=== PATIENT | female | born 1965 | race Asian ===

== ENCOUNTER 2016-10-02 14:55 | Emergency (ER) | payer BC ==
[2016-10-02] MEDS ORDERED: ACETAMINOPHEN TAB 500 MG TAB PO STA (16:19)
--- NOTE | 2016-10-02 16:24 | ED ---
Fever HPI - General Chief Complaint: Fever Stated Complaint: fever/weakness/trembling Time Seen by Provider: 10/02/16 16:04 Source: family, RN notes reviewed Mode of arrival: wheelchair Limitations: no limitations - History of Present Illness Initial Comments: 51-year-old female presents emergency Department chief complaint of fever. Patient developed a fever that started today. Patient has no specific complaints associated with. Patient denies any recent acetaminophen or ibuprofen. Patient states she took Tylenol at 6 AM this morning. Patient states that she is ALLERGIC to aspirin so she does not take ibuprofen. Patient states that she's had a slight cough denies sore throat, ear pain, headache or any neck stiffness. Patient states that she does have some body aches. Patient denies any dysuria, hematuria, nausea or vomiting. - Related Data Home Medications Medication Instructions Recorded Confirmed Acetaminophen Tab [Tylenol Tab] 325 mg PO Q6H PRN 10/02/16 10/02/16 Losartan-Hctz 50-12.5 mg [Hyzaar 1 tab PO DAILY 10/02/16 10/02/16 50-12.5] glyBURIDE/METFORMIN HCL 1 tab PO BID 10/02/16 10/02/16 [Glucovance 2.5-500 mg Tablet] Previous Rx's Medication Instructions Recorded Levofloxacin [Levaquin] 500 mg PO DAILY #10 tab 10/02/16 Allergies Allergy/AdvReac Type Severity Reaction Status Date / Time aspirin Allergy Rash/Hives Verified 10/02/16 16:08 Review of Systems ROS Statement: Those systems with pertinent positive or pertinent negative responses have been documented in the HPI. ROS Other: All systems not noted in ROS Statement are negative. Past Medical History Past Medical History: Diabetes Mellitus, Hypertension History of Any Multi-Drug Resistant Organisms: None Reported Additional Past Surgical History / Comment(s): kidney stone Past Psychological History: No Psychological Hx Reported Smoking Status: Never smoker Past Alcohol Use History: None Reported Past Drug Use History: None Reported General Exam Limitations: no limitations General appearance: alert, in no apparent distress Head exam: Present: atraumatic, normocephalic, normal inspection Eye exam: Present: normal appearance, PERRL, EOMI. Absent: scleral icterus, conjunctival injection, periorbital swelling ENT exam: Present: normal exam, normal oropharynx, mucous membranes moist, TM's normal bilaterally, normal external ear exam Neck exam: Present: normal inspection, full ROM. Absent: tenderness, meningismus, lymphadenopathy Respiratory exam: Present: normal lung sounds bilaterally. Absent: respiratory distress, wheezes, rales, rhonchi, stridor Cardiovascular Exam: Present: normal rhythm, tachycardia, normal heart sounds. Absent: systolic murmur, diastolic murmur, rubs, gallop, clicks GI/Abdominal exam: Present: soft, normal bowel sounds. Absent: distended, tenderness, guarding, rebound, rigid Back exam: Absent: CVA tenderness (R), CVA tenderness (L) Neurological exam: Present: alert, oriented X3, CN II-XII intact Skin exam: Present: warm, dry, intact, normal color. Absent: rash Course Vital Signs 10/02/16 15:34 Temperature 103.6 F H Pulse Rate 111 H Respiratory 18 Rate Blood Pressure 143/68 O2 Sat by Pulse 99 Oximetry Medical Decision Making - Medical Decision Making 51-year-old female presents emergency Department chief complaint of fever. Patient had no specific complaints. Patient's influenza is negative. Chest x- ray shows right lower lobe pneumonia. Patient also has urinary tract infection. Patient does report some mild left flank pain but has no CVA tenderness. Patient was offered lab work, admission to the hospital for IV antibiotics as she states that she feels well enough at this time to go home. Patient be given a shot of Rocephin, discharged on Levaquin. Patient advised take acetaminophen every 6 hours as directed. Patient's return if symptoms worsen. Patient and family agreed to plan. - Lab Data Lab Results 10/02/16 10/02/16 10/02/16 Range/Units 16:30 17:12 17:46 POC Glucose (mg/dL) 235 H (75-99) mg/dL POC Glu Pulp Machine Operator ID Aliya Benitez Urine Color Yellow Urine Appearance Cloudy H (Clear) Urine pH 5.5 (5.0-8.0) Ur Specific M[place] 1.019 (1.001-1.035) Urine Protein 1+ H (Negative) Urine Glucose (UA) 4+ H (Negative) Urine Ketones Negative (Negative) Urine Blood Large H (Negative) Urine Nitrate Positive H (Negative) Urine Bilirubin Negative (Negative) Urine Urobilinogen <2.0 (<2.0) mg/dL Ur Leukocyte Esterase Moderate H (Negative) Urine RBC 134 H (0-5) /hpf Urine WBC 146 H (0-5) /hpf Urine WBC Clumps Few H (None) /hpf Ur Squamous Epith Cells 5 H (0-4) /hpf Urine Bacteria Many H (None) /hpf Urine Mucus Rare H (None) /hpf Urine Yeast (Budding) Occasional H (None) /hpf Influenza Type A RNA Not Detected (Not Detectd) Influenza Type B (PCR) Not Detected (Not Detectd) Disposition Clinical Impression: UTI (urinary tract infection), Pneumonia Disposition: HOME SELF-CARE Condition: Stable Instructions: Urinary Tract Infection in Women (ED), Bacterial Pneumonia (ED) Additional Instructions: Please return to the Emergency Department if symptoms worsen or any other concerns. Prescriptions: Levofloxacin [Levaquin] 500 mg PO DAILY #10 tab Time of Disposition: 17:58
--- NOTE | 2016-10-02 16:38 | XR ---
EXAMINATION TYPE: XR chest 2V DATE OF EXAM: 10/02/2016 4:32 PM COMPARISON: NONE HISTORY: Cough and pain TECHNIQUE: Frontal and lateral views of the chest are obtained. FINDINGS: There is no pleural effusion, or pneumothorax seen. The cardiac silhouette size is within normal limits. Calcification is present in the right upper quadrant measuring approximately 18 mm. There is airspace disease present in the right lower lobe. The osseous structures are intact. IMPRESSION: Findings suggestive of right lower lobe pneumonia. Possible calcified gallstone right up per quadrant.
[2016-10-02 17:40] LABS: Appearance,Urine Cloudy (Clear); Bacteria,Urine Many /hpf; Bilirubin,Urine Negative (Negative); Glucose,Urine (UA) 4+ (Negative); Ketones,Urine Negative (Negative); Leukocyte Esterase,Urine Moderate (Negative); Mucus,Urine Rare /hpf; Nitrite,Urine Positive (Negative); PH, Urine 5.5 (5.0-8.0); Particle Count 8937; Protein,Urine 1+ (Negative); RBC,Urine 134 /hpf (0-5); Specific Gravity,Urine 1.019 (1.001-1.035); Squamous Epithelial Cell,Urine 5 /hpf (0-4); UA Billing (MACRO vs. MICRO) MICRO; Urobilinogen,Urine <2.0 mg/dL (<2.0); WBC,Urine 146 /hpf (0-5)
[2016-10-02 17:47] LABS: Glucose,Whole Blood 235 mg/dL (75-99)
[2016-10-02] MEDS ORDERED: cefTRIAXone 1,000 MG VIAL (IM USE) IM STA (17:58)
[2016-10-02 18:52] VITALS: BP 113/66; PULSE 93; RESP 20; TEMP 101
== END 2016-10-02 18:52 | disposition home or self-care (01) ==
LOC: EC 14:55
DX: N39.0 Urinary tract infection, site not specified (principal); J18.9 Pneumonia, unspecified organism; E11.9 Type 2 diabetes mellitus without complications; I10 Essential (primary) hypertension; Z88.6 Allergy status to analgesic agent; Z79.899 Other long term (current) drug therapy; Z79.84 Long term (current) use of oral hypoglycemic drugs
CPT/HCPCS: 36415; 81001; 87086; 87502; 71020; 99283; 96372; J0696; 87077; 87186

== ENCOUNTER → 2018-05-26 | Outpatient (CLI) | payer OTHER ==
--- NOTE | 2018-05-26 14:14 | XR ---
EXAMINATION TYPE: XR shoulder complete LT DATE OF EXAM: 05/26/2018 COMPARISON: NONE HISTORY: 52-year-old female pain after repetitive movement. TECHNIQUE: 3 views FINDINGS: Mild degenerative change at the AC joint with marginal spurring and mild capsular hypertrophy. Subacr omial space is preserved. No tendinous or bursal calcifications. No acute fracture, subluxation, or d islocation. IMPRESSION: Mild AC joint OA. No acute osseous abnormality seen.
== END | disposition home or self-care (01) ==
LOC: RADXRMAIN 13:56
PROVIDERS: ATTEND Emergency Medicine
DX: M19.012 Primary osteoarthritis, left shoulder (principal)

== ENCOUNTER → 2018-08-17 | Outpatient (CLI) | payer OTHER ==
--- NOTE | 2018-08-17 10:20 | MR ---
EXAMINATION TYPE: MR shoulder LT wo con DATE OF EXAM: 08/17/2018 8:52 AM COMPARISON: NONE HISTORY: Left shoulder pain TECHNIQUE: Multiplanar multispin echo imaging of the left shoulder was performed. FINDINGS: Rotator cuff : Moderately severe heterogeneity and thickening of the supraspinatus tendon with a mult ifocal intrasubstance tear. No evidence for full-thickness tear or retracted tear at this time. Remai apurva constituents of the rotator cuff are intact. Bursa: No bursal effusion or thickening is seen. Musculature: There is no muscular tear, contusion, or atrophy. Acromioclavicular joint : Moderate subacromial spurring resulting in impingement. Mild AC joint arthr opathy. Osseous structures : There are no fractures or regions of abnormal bone marrow signal intensity. Long biceps tendon : The biceps tendon is normally situated within the bicipital groove. No complete or partial biceps tendon tear is present. Fluid is seen within the biceps tendon sheath which may ref lect biceps tenosynovitis. Glenohumeral Joint fluid : Small joint effusion noted. Cartilage and Bone : No focal hyaline cartilage defects are noted. No Hill-Sachs, reverse Hill-Sachs, or bony Bankart lesions are seen. Labrum : There are no SLAP or soft tissue Bankart lesions. No paralabral cysts are seen. OTHER FINDINGS : none IMPRESSION: 1. Chronic tendinopathy supraspinatus tendon with intrasubstance tears. No evidence for full-thicknes s tear or retracted tear. Moderate subacromial impingement.
== END | disposition home or self-care (01) ==
LOC: RADMRIMAIN 08:03
PROVIDERS: ATTEND Emergency Medicine
DX: M75.102 Unspecified rotator cuff tear or rupture of left shoulder, not specified as traumatic (principal); M75.82 Other shoulder lesions, left shoulder

== ENCOUNTER 2018-11-22 12:19 | Inpatient (IN) | payer BC, OTHER ==
[2018-11-22] MEDS ORDERED: NITROGLYCERIN SL TABS 0.4 MG TAB SUBLINGUAL STA ×3 (13:01)
--- NOTE | 2018-11-22 13:05 | ED ---
General Adult HPI - General Chief complaint: Chest Pain Stated complaint: Chest Pain Time Seen by Provider: 11/22/18 12:58 Source: patient, RN notes reviewed Mode of arrival: wheelchair Limitations: no limitations - History of Present Illness Initial comments: Patient is a pleasant 53-year-old female presenting to the emergency Department with chest discomfort. Onset of symptoms was around a week ago. Symptoms have been intermittent since that time. Discomfort does worsen with exertion, such as mopping. Discomfort is currently somewhat severe rated 8/10. Discomfort is described as tightness. There is some mild associated dyspnea. No nausea or diaphoresis. No history of similar symptoms previously. - Related Data Home Medications Medication Instructions Recorded Confirmed Losartan-Hctz 50-12.5 mg [Hyzaar 1 tab PO HS 10/02/16 11/22/18 50-12.5] glyBURIDE/METFORMIN HCL 1 tab PO DAILY 11/22/18 11/22/18 [Glucovance 5-500 mg] Allergies Allergy/AdvReac Type Severity Reaction Status Date / Time aspirin Allergy Rash/Hives Verified 11/22/18 13:20 Review of Systems ROS Statement: Those systems with pertinent positive or pertinent negative responses have been documented in the HPI. ROS Other: All systems not noted in ROS Statement are negative. Constitutional: Denies: fever Eyes: Denies: eye pain ENT: Denies: ear pain Respiratory: Reports: dyspnea. Denies: cough Cardiovascular: Reports: chest pain Endocrine: Denies: fatigue Gastrointestinal: Denies: abdominal pain, nausea Genitourinary: Denies: dysuria Musculoskeletal: Denies: back pain Skin: Denies: rash Neurological: Denies: weakness Past Medical History Past Medical History: Diabetes Mellitus, Hypertension History of Any Multi-Drug Resistant Organisms: None Reported Additional Past Surgical History / Comment(s): kidney stone, carpal tunnel Past Psychological History: No Psychological Hx Reported Smoking Status: Never smoker Past Alcohol Use History: None Reported Past Drug Use History: None Reported General Exam Limitations: no limitations General appearance: alert Head exam: Present: normocephalic Eye exam: Present: normal appearance Neck exam: Present: normal inspection Respiratory exam: Present: normal lung sounds bilaterally. Absent: chest wall tenderness Cardiovascular Exam: Present: regular rate, normal rhythm Expanded Peripheral pulses: 2+: Radial (R), Radial (L), Dorsalis Pedis (R), Dorsalis Pedis (L) GI/Abdominal exam: Present: soft. Absent: distended, tenderness Extremities exam: Present: normal inspection. Absent: pedal edema, calf tenderness Neurological exam: Present: alert Psychiatric exam: Present: normal affect, normal mood Skin exam: Present: normal color Course Vital Signs 11/22/18 11/22/18 11/22/18 12:22 13:24 13:29 Temperature 97.9 F Pulse Rate 61 60 67 Respiratory 18 18 18 Rate Blood Pressure 150/81 170/73 154/92 O2 Sat by Pulse 100 100 100 Oximetry 11/22/18 13:34 Temperature Pulse Rate 69 Respiratory 18 Rate Blood Pressure 144/93 O2 Sat by Pulse 99 Oximetry EKG Findings - EKG Comments: EKG Findings:: Sinus bradycardia 59. ME 158. QRS 100. QT 418. QTC 413. Normal axis. Septal T waves. Nonspecific ST-T. Medical Decision Making - Medical Decision Making Patient reevaluated and symptoms have improved following nitroglycerin however not resolved. Patient and family are updated on results and plan. Case was discussed in detail with Dr. Bang, who will admit covering for Dr. vazquez - Lab Data Result diagrams: 11/22/18 13:15 11/22/18 13:15 Lab Results 11/22/18 11/22/18 11/22/18 Range/Units 13:15 13:15 13:15 WBC 6.4 (3.8-10.6) k/uL RBC 6.14 H (3.80-5.40) m/uL Hgb 12.5 (11.4-16.0) gm/dL Hct 42.4 (34.0-46.0) % MCV 69.1 L (80.0-100.0) fL MCH 20.3 L (25.0-35.0) pg MCHC 29.4 L (31.0-37.0) g/dL RDW 14.4 (11.5-15.5) % Plt Count 268 (150-450) k/uL Neutrophils % 63 % Lymphocytes % 28 % Monocytes % 5 % Eosinophils % 3 % Basophils % 1 % Neutrophils # 4.0 (1.3-7.7) k/uL Lymphocytes # 1.8 (1.0-4.8) k/uL Monocytes # 0.3 (0-1.0) k/uL Eosinophils # 0.2 (0-0.7) k/uL Basophils # 0.0 (0-0.2) k/uL Hypochromasia Marked Microcytosis Moderate PT 10.0 (9.0-12.0) sec INR 0.9 (<1.2) APTT 22.8 (22.0-30.0) sec D-Dimer <0.17 (<0.60) mg/L FEU Sodium 136 L (137-145) mmol/L Potassium 4.5 (3.5-5.1) mmol/L Chloride 98 (98-107) mmol/L Carbon Dioxide 25 (22-30) mmol/L Anion Gap 13 mmol/L BUN 12 (7-17) mg/dL Creatinine 0.40 L (0.52-1.04) mg/dL Est GFR (CKD-EPI)AfAm >90 (>60 ml/min/1.73 sqM) Est GFR (CKD-EPI)NonAf >90 (>60 ml/min/1.73 sqM) Glucose 221 H (74-99) mg/dL Calcium 10.2 (8.4-10.2) mg/dL Magnesium 1.7 (1.6-2.3) mg/dL Total Bilirubin 0.7 (0.2-1.3) mg/dL AST 43 H (14-36) U/L ALT 70 H (9-52) U/L Alkaline Phosphatase 76 (38-126) U/L Troponin I (0.000-0.034) ng/mL NT-Pro-B Natriuret Pep pg/mL Total Protein 8.5 H (6.3-8.2) g/dL Albumin 4.8 (3.5-5.0) g/dL Amylase 98 (30-110) U/L Lipase 156 (23-300) U/L 11/22/18 11/22/18 Range/Units 13:15 13:15 WBC (3.8-10.6) k/uL RBC (3.80-5.40) m/uL Hgb (11.4-16.0) gm/dL Hct (34.0-46.0) % MCV (80.0-100.0) fL MCH (25.0-35.0) pg MCHC (31.0-37.0) g/dL RDW (11.5-15.5) % Plt Count (150-450) k/uL Neutrophils % % Lymphocytes % % Monocytes % % Eosinophils % % Basophils % % Neutrophils # (1.3-7.7) k/uL Lymphocytes # (1.0-4.8) k/uL Monocytes # (0-1.0) k/uL Eosinophils # (0-0.7) k/uL Basophils # (0-0.2) k/uL Hypochromasia Microcytosis PT (9.0-12.0) sec INR (<1.2) APTT (22.0-30.0) sec D-Dimer (<0.60) mg/L FEU Sodium (137-145) mmol/L Potassium (3.5-5.1) mmol/L Chloride (98-107) mmol/L Carbon Dioxide (22-30) mmol/L Anion Gap mmol/L BUN (7-17) mg/dL Creatinine (0.52-1.04) mg/dL Est GFR (CKD-EPI)AfAm (>60 ml/min/1.73 sqM) Est GFR (CKD-EPI)NonAf (>60 ml/min/1.73 sqM) Glucose (74-99) mg/dL Calcium (8.4-10.2) mg/dL Magnesium (1.6-2.3) mg/dL Total Bilirubin (0.2-1.3) mg/dL AST (14-36) U/L ALT (9-52) U/L Alkaline Phosphatase (38-126) U/L Troponin I 0.045 H* (0.000-0.034) ng/mL NT-Pro-B Natriuret Pep 26 pg/mL Total Protein (6.3-8.2) g/dL Albumin (3.5-5.0) g/dL Amylase (30-110) U/L Lipase (23-300) U/L - Radiology Data Radiology results: image reviewed (Chest x-ray shows no acute process. Probable nipple shadows.) Critical Care Time Critical Care Time: Yes Total Critical Care Time: 32 Disposition Clinical Impression: Unstable angina pectoris Disposition: ADMITTED IP TO THIS [facility] Is patient prescribed a controlled substance at d/c from ED?: No Referrals: Cecil Vazquez MD [Primary Care Provider] - 1-2 days Decision Time: 15:12
[2018-11-22] MEDS: ASPIRIN 81 MG PO STA ×2 (13:23)
[2018-11-22 13:45] LABS: Basophils % (A) 1 %; Eosinophils # (A) 0.2 k/uL (0-0.7); Eosinophils % (A) 3 %; HCT 42.4 % (34.0-46.0); HGB 12.5 gm/dL (11.4-16.0); Hypochromasia Marked; Lymphocytes # (A) 1.8 k/uL (1.0-4.8); Lymphocytes % (A) 28 %; MCH 20.3 pg (25.0-35.0); MCHC 29.4 g/dL (31.0-37.0); MCV 69.1 fL (80.0-100.0); Mean Platelet Volume 6.5; Microcytosis Moderate; Monocytes # (A) 0.3 k/uL (0-1.0); Monocytes % (A) 5 %; Neutrophils % (A) 63 %; Platelet Count 268 k/uL (150-450); RBC 6.14 m/uL (3.80-5.40); RDW 14.4 % (11.5-15.5); WBC 6.4 k/uL (3.8-10.6)
[2018-11-22 13:53] LABS: D-Dimer <0.17 mg/L FEU (<0.60); INR 0.9 (<1.2); Partial Thromboplastin Time 22.8 sec (22.0-30.0)
[2018-11-22 13:54] LABS: ALT 70 U/L (9-52); AST 43 U/L (14-36); Albumin 4.8 g/dL (3.5-5.0); Alkaline Phosphatase 76 U/L (38-126); Amylase 98 U/L (30-110); Anion Gap 13 mmol/L; Blood Urea Nitrogen 12 mg/dL (7-17); Calcium 10.2 mg/dL (8.4-10.2); Carbon Dioxide 25 mmol/L (22-30); Chloride 98 mmol/L (98-107); Glucose 221 mg/dL (74-99); Lipase 156 U/L (23-300); Magnesium 1.7 mg/dL (1.6-2.3); Sodium 136 mmol/L (137-145); Total Bilirubin 0.7 mg/dL (0.2-1.3); Total Protein 8.5 g/dL (6.3-8.2)
[2018-11-22 14:07] LABS: Potassium 4.5 mmol/L (3.5-5.1)
--- NOTE | 2018-11-22 14:08 | XR ---
EXAMINATION TYPE: XR chest 2V DATE OF EXAM: 11/22/2018 COMPARISON: 10/02/2011 HISTORY: Chest pain TECHNIQUE: Frontal and lateral views of the chest are obtained. FINDINGS: There is no focal air space opacity, pleural effusion, or pneumothorax seen. The cardiac silhouette size is within normal limits. The osseous structures are intact. Rounded densities overl keo the left heart border and right hemidiaphragm appear to be external to the patient and may repre sent nipple shadows is either not seen on the lateral view. IMPRESSION: No acute cardiopulmonary process. Probable nipple shadows could be confirmed with repeat chest radiograph and nipple markers.
[2018-11-22] MEDS ORDERED: HEPARIN SODIUM,PORCINE 5,000 UNIT/ML 1 ML VIAL IV PRN (15:12)
[2018-11-22] MEDS ORDERED: HEPARIN SODIUM,PORCINE 5,000 UNIT/ML 1 ML VIAL IV ONE (15:12)
[2018-11-22] MEDS ORDERED: ONDANSETRON 4 MG/2 ML VIAL IVP PRN (15:36)
--- NOTE | 2018-11-22 15:47 | P.HPIM ---
History of Present Illness H&P Date: 11/22/18 Chief Complaint: Chest pain This is a 53-year-old female, patient of Dr. Vazquez. She has a known past medical history of diabetes mellitus and hypertension. Patient presents to the emergency room with complaints of chest pain in the center of the chest. The chest pains of been intermittent for the last week. Associated symptoms are shortness of breath and nausea. 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 She's never had symptoms like this before. No cardiac history. No family cardiac history. She denies any smoking or alcohol use. Troponin elevated at 0.045. She's been placed on IV heparin. Cardiology has been consulted. She is slight improvement in her chest pain with the nitro. Chest x-ray showed no acute changes did reveal nipple shadows. EKG sinus bradycardia with a heart rate of 59 anterior infarct age undetermined and a possible left atrial enlargement. Patient denies any cough, fever, chills, sweats, vomiting, dizziness or lightheadedness, bowel movement changes or urinary symptoms. Patient had elevated LFTs ALT 70 and AST 43. Amylase and lipase are normal. Denies any abdominal pain. Denies any history of alcohol use or hepatitis. Review of Systems Please refer to HPI otherwise unremarkable Past Medical History Past Medical History: Diabetes Mellitus, Hypertension History of Any Multi-Drug Resistant Organisms: None Reported Additional Past Surgical History / Comment(s): kidney stone, carpal tunnel Past Psychological History: No Psychological Hx Reported Smoking Status: Never smoker Past Alcohol Use History: None Reported Past Drug Use History: None Reported Medications and Allergies Home Medications Medication Instructions Recorded Confirmed Type Losartan-Hctz 50-12.5 mg [Hyzaar 1 tab PO HS 10/02/16 11/22/18 History 50-12.5] glyBURIDE/METFORMIN HCL 1 tab PO DAILY 11/22/18 11/22/18 History [Glucovance 5-500 mg] Allergies Allergy/AdvReac Type Severity Reaction Status Date / Time aspirin Allergy Rash/Hives Verified 11/22/18 13:20 Physical Exam Vitals: Vital Signs Temp Pulse Resp BP Pulse Ox 11/22/18 13:34 69 18 144/93 99 11/22/18 13:29 67 18 154/92 100 11/22/18 13:24 60 18 170/73 100 11/22/18 12:22 97.9 F 61 18 150/81 100 Intake and Output 11/22/18 11/22/18 11/22/18 06:59 14:59 22:59 Other: Weight 45.359 kg Head normocephalic Neck supple Lungs clear to auscultation bilaterally no wheezing or crackles Heart regular rate and rhythm S1-S2, no rub or gallop Abdomen is soft nontender nondistended positive bowel sounds no hepatosplenomegaly Extremities no edema Neuro alert and orientated to 3 Results CBC & Chem 7: 11/22/18 13:15 11/22/18 13:15 Labs: Abnormal Lab Results - Last 24 Hours (Table) 11/22/18 11/22/18 11/22/18 Range/Units 13:15 13:15 13:15 RBC 6.14 H (3.80-5.40) m/uL MCV 69.1 L (80.0-100.0) fL MCH 20.3 L (25.0-35.0) pg MCHC 29.4 L (31.0-37.0) g/dL Sodium 136 L (137-145) mmol/L Creatinine 0.40 L (0.52-1.04) mg/dL Glucose 221 H (74-99) mg/dL AST 43 H (14-36) U/L ALT 70 H (9-52) U/L Troponin I 0.045 H* (0.000-0.034) ng/mL Total Protein 8.5 H (6.3-8.2) g/dL Assessment and Plan Assessment: 1. Chest pain: First troponin elevated at 0.045. Serial cardiac enzymes are ordered. D-dimer normal. Patient started on IV heparin. Cardiology consult. EKG showing sinus rhythm with a heart rate of 59 anterior infarct age undetermined. Chest x-ray no acute changes. 2. Diabetes mellitus type 2: Blood sugar 221 on admission. Hold metformin continue glyburide. Add sliding scale coverage with Accu-Cheks every before meals and at bedtime. Check hemoglobin A1c 3. Essential hypertension: Resume patient's blood pressure medication, Hyzaar. Blood pressure slightly elevated on admission. 170/73 down to 144/93 4. Elevated LFTs no abdominal pain. Repeat LFTs in a.m. check abdominal ultrasound and acute hepatitis panel. Patient denies any alcohol use. Denies being on any cholesterol medication. Also is not taking Tylenol or no gross regularly. She did take one time. GI prophylaxis Protonix and DVT prophylaxis IV heparin Time with Patient: Greater than 30 (Greater than 50% of the total time spent in counseling and coordination of care.I performed an examination of the patient and discussed their management with the physician Rail Signal Designer. I have reviewed the Physician Rail Signal Designer's notes and agree with the documented findings and plan of care)
[2018-11-22] MEDS: HEPARIN SOD,PORK IN 0.45% NACL 25,000 UNIT in 0.45% NACL 1 250ML.BAG IV SCH (15:56)
--- NOTE | 2018-11-22 17:50 | US ---
EXAMINATION TYPE: US abdomen complete DATE OF EXAM: 11/22/2018 COMPARISON: NONE CLINICAL HISTORY: elevated LFTs. chest pain EXAM MEASUREMENTS: Liver Length: 13.7 cm Gallbladder Wall: 0.2 cm CBD: 0.3 cm Spleen: 10.1 cm Right Kidney: 13.3 x 3.7 x 4.7 cm Left Kidney: 14.7 x 5.0 x 5.6 cm History of surgery to left kidney to remove stone. Pancreas: visualized portions wnl Liver: wnl Gallbladder: large mobile stone with shadowing, 2.3 cm Evidence for sonographic Bautista's sign: No CBD: wnl Spleen: wnl Right Kidney: No hydronephrosis or masses seen Left Kidney: No hydronephrosis or masses seen Upper IVC: wnl Abd Aorta: wnl IMPRESSION: 1. No acute process. 2. Cholelithiasis noted.
[2018-11-22] MEDS: PANTOPRAZOLE 40 MG TABLET PO SCH (19:24)
[2018-11-22] MEDS: NITROGLYCERIN OINT 1 INCH/GM PACKET TOPICAL SCH ×2 (19:24→23:27)
[2018-11-22] MEDS: INSULIN ASPART (NovoLOG) 100 UNIT/ML VIAL SQ SCH ×2 (19:24→21:33)
[2018-11-22] MEDS: NITROGLYCERIN SL TABS 0.4 MG TAB SUBLINGUAL PRN ×2 (20:58→21:05)
[2018-11-22 21:04] LABS: Glucose,Whole Blood 245 mg/dL (75-99)
[2018-11-22] MEDS ORDERED: HYDROmorphone 0.5 MG/0.5 ML SYRINGE IVP STA (21:22)
[2018-11-22] MEDS: LOSARTAN-HCTZ 50-12.5 MG 1 EACH TAB PO SCH (21:35)
[2018-11-23] MEDS: NITROGLYCERIN-D5W PMX 50 MG in DEXTROSE/WATER 1 250ML.BAG IV SCH (03:10)
[2018-11-23] MEDS: NITROGLYCERIN SL TABS 0.4 MG TAB SUBLINGUAL PRN (03:15)
[2018-11-23 04:29] LABS: Hepatitis A Antibody IgM Non-Reactive (Non-Reactive); Hepatitis B Core IgM Non-Reactive (Non-Reactive)
[2018-11-23 04:35] LABS: Hemoglobin A1C 9.3 % (4.0-6.0)
[2018-11-23 06:07] LABS: Glucose,Whole Blood 245 mg/dL (75-99)
[2018-11-23] MEDS: PANTOPRAZOLE 40 MG TABLET PO SCH (06:36)
[2018-11-23] MEDS: NITROGLYCERIN OINT 1 INCH/GM PACKET TOPICAL SCH ×2 (06:36→12:24)
[2018-11-23] MEDS: INSULIN ASPART (NovoLOG) 100 UNIT/ML VIAL SQ SCH ×4 (06:38→22:45)
[2018-11-23 06:51] LABS: Basophils % (A) 0 %; Eosinophils # (A) 0.1 k/uL (0-0.7); Eosinophils % (A) 1 %; HCT 39.5 % (34.0-46.0); HGB 11.6 gm/dL (11.4-16.0); Hypochromasia Marked; Lymphocytes # (A) 1.7 k/uL (1.0-4.8); Lymphocytes % (A) 18 %; MCH 20.2 pg (25.0-35.0); MCHC 29.4 g/dL (31.0-37.0); MCV 68.7 fL (80.0-100.0); Mean Platelet Volume 6.7; Microcytosis Moderate; Monocytes # (A) 0.5 k/uL (0-1.0); Monocytes % (A) 5 %; Neutrophils # (A) 7.1 k/uL (1.3-7.7); Neutrophils % (A) 75 %; Platelet Count 271 k/uL (150-450); RBC 5.76 m/uL (3.80-5.40); RDW 14.2 % (11.5-15.5); WBC 9.5 k/uL (3.8-10.6)
[2018-11-23] MEDS ORDERED: fentaNYL (PF) 50 MCG/ML 2 ML AMP ONE (06:59)
[2018-11-23] MEDS ORDERED: IV FLUID CONTINUATION 500 ML IV ONE (07:00)
[2018-11-23] MEDS ORDERED: MIDAZOLAM 2 MG/2 ML VIAL IV ONE (07:01)
[2018-11-23] MEDS ORDERED: fentaNYL (PF) 50 MCG/ML 2 ML AMP IV ONE (07:01)
[2018-11-23] MEDS ORDERED: LIDOCAINE 1% INJ 10MG/ML (20 ML MDV) ONE (07:02)
[2018-11-23] MEDS ORDERED: LIDOCAINE 1% INJ 10MG/ML (20 ML MDV) SQ ONE (07:03)
[2018-11-23] MEDS ORDERED: SODIUM CHLORIDE 0.9% 500 ML 500 ML IV ONE (07:10)
[2018-11-23] MEDS ORDERED: ASPIRIN 81 MG ONE (07:17)
[2018-11-23] MEDS ORDERED: TICAGRELOR 90 MG TAB ONE (07:18)
[2018-11-23 07:22] LABS: ALT 77 U/L (9-52); AST 198 U/L (14-36); Albumin 4.1 g/dL (3.5-5.0); Alkaline Phosphatase 74 U/L (38-126); Anion Gap 8 mmol/L; Blood Urea Nitrogen 14 mg/dL (7-17); Calcium 9.2 mg/dL (8.4-10.2); Carbon Dioxide 26 mmol/L (22-30); Chloride 101 mmol/L (98-107); Cholesterol 231 mg/dL (<200); Glucose 261 mg/dL (74-99); HDL Cholesterol 37 mg/dL (40-60); LDL Cholesterol,Calculated 145 mg/dL (0-99); Potassium 4.2 mmol/L (3.5-5.1); Sodium 135 mmol/L (137-145); Total Bilirubin 0.7 mg/dL (0.2-1.3); Total Protein 7.1 g/dL (6.3-8.2); Triglycerides 245 mg/dL (<150)
[2018-11-23] MEDS ORDERED: ASPIRIN 81 MG PO ONE (07:28)
[2018-11-23] MEDS ORDERED: TICAGRELOR 90 MG TAB PO ONE (07:28)
[2018-11-23] MEDS ORDERED: glipiZIDE 5 MG TAB PO SCH (07:30)
[2018-11-23] MEDS ORDERED: BIVALIRUDIN 250 MG in SODIUM CHLORIDE 0.9% 50 ML IV ONE (07:43)
[2018-11-23] MEDS ORDERED: BIVALIRUDIN BOLUS 250 MG/50 ML IV ONE (07:43)
--- NOTE | 2018-11-23 07:56 | CC ---
CARDIAC CATHETERIZATION REPORT Mrs. Venegas is a 53-year-old female who was admitted to the hospital with symptoms suggestive of unstable angina and non-Q-wave myocardial infarction. The patient has a history of hypertension, diabetes, has been having intermittent chest discomfort for one week. Yesterday she had more severe pain, came to the emergency room. Initial EKG showed minimal T-wave inversions in lead V3. The patient was admitted to the floor. Subsequently during the night the patient had a couple of episodes of chest pain, got relieved with nitroglycerin. EKG showed T-wave inversions in V5 and V6 and troponin was up to [address]-segment elevation myocardial infarction. In view of that, the patient was advised urgent cardiac catheterization. PROCEDURE: The right groin was prepped and draped in the usual manner and the skin was infiltrated with 2% Xylocaine. The right femoral artery was entered using Seldinger technique using micropuncture needle and a #6-Macedonian sheath was placed in. Selective coronary angiography was then performed in multiple projections. The left ventricular pressures were obtained. Patient tolerated the procedure well. Moderate sedation was used. Sedation time is 20 minutes. HEMODYNAMICS: The left ventricular end-diastolic pressure is 24 mmHg prior to angiography. No gradient is noted across the aortic valve. SELECTIVE CORONARY ANGIOGRAPHY: Left main coronary artery is normal and patent. LAD is totally occluded right in its proximal portion just after the origin from the left main. Circumflex coronary artery is a large caliber blood vessel and it is normal. The circumflex coronary artery gives rise to collaterals to the distal right coronary artery. Right coronary artery is an average caliber blood vessel and PLV branch is totally blocked. The right coronary artery gives collaterals to the LAD. 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 It gives collaterals to the distal LAD. RECOMMENDATIONS: We will review the film with Dr. Frye and consider stent to the LAD. MMODL / IJN: [id number] /
--- NOTE | 2018-11-23 07:59 | CONS ---
CONSULTATION Mrs. Venegas is a 53-year-old female who was seen in consultation for chest pain. This patient gives a history that she has been having intermittent chest discomfort for the last one week. The pain was increased in severity yesterday, came to the emergency room. The patient was given nitroglycerin with relief of the symptoms. The patient initial EKG showed minimal T-wave inversions in V2 and V3. Patient subsequently was admitted on the selective care unit. During the night, patient had a couple of episodes of chest pain, which got relieved with nitroglycerin. Repeat EKG showed T- wave inversions in V5 and V6 and the troponin went up to 5.0 in view of that suggestive of non ST-segment elevation myocardial infarction. In view of that, the patient was recommended to have urgent cardiac catheterization. The patient has a history of diabetes as well as hyperlipidemia. The patient does not smoke. There is no previous history of myocardial infarction. PAST MEDICAL HISTORY: History of carpal tunnel syndrome. No history of any major surgeries. REVIEW OF THE SYSTEM: Patient denies any history of GI bleeding or any urinary problem. PHYSICAL EXAMINATION: Physical examination at present revealed a 53-year-old, thinly built female who is not having any chest pain at present. Blood pressure is 135/85 mmHg. Head/ENT examination is negative. Neck is supple. There is no increase in jugular venous pressure. Both the carotid pulses are felt. There is no bruit. Chest is symmetrical. HEART: The PMI is not felt. First and second heart sounds are normal. There is no evidence of any murmur. Lungs are clinically clear to auscultation and percussion. Abdomen is soft. Liver and spleen are not enlarged. EXTREMITIES: Peripheral pulsations are 2+. First EKG showed T-wave inversions in V2 and V3. Subsequent EKG shows T-wave inversions from V3 to V6 with minimal J-point elevation in the ST-segment. IMPRESSION: 1. Acute non ST-segment elevation myocardial infarction. 2. History of hypertension. 3. History of diabetes. RECOMMENDATIONS: In view of the recurrent chest pain, patient is advised urgent cardiac catheterization. MMODL / IJN: [id number] /
[2018-11-23] MEDS ORDERED: IOPAMIDOL-370 150ML BTL INJ ONE (08:13)
[2018-11-23] MEDS ORDERED: niCARdipine Syringe (1,000 mcg/10 mL) INTRACORON ONE (08:31)
[2018-11-23] MEDS ORDERED: NITROGLYCERIN 1000MCG/10ML SYRINGE INTRACORON ONE (08:31)
[2018-11-23] MEDS ORDERED: RX INFO: IV CONTRAST WAS GIVEN 1 EACH MISC MISCELLANE PRN (08:38)
[2018-11-23] MEDS ORDERED: ATROPINE SULFATE 0.1 MG/ML 10ML SYRINGE IV PRN (08:38)
[2018-11-23] MEDS ORDERED: NITROGLYCERIN SL TABS 0.4 MG TAB SUBLINGUAL PRN (08:38)
[2018-11-23] MEDS ORDERED: MAG HYDROX/AL HYDROX/SIMETH 30 ML CUP PO PRN (08:38)
[2018-11-23] MEDS ORDERED: ZOLPIDEM 5 MG TAB PO PRN (08:38)
[2018-11-23] MEDS ORDERED: SODIUM CHLORIDE 0.9% 1,000 ML IV SCH (08:45)
[2018-11-23] MEDS ORDERED: IOPAMIDOL-370 100ML BTL INJ ONE (08:53)
[2018-11-23] MEDS ORDERED: ASPIRIN 325 MG TAB PO SCH (09:00)
--- NOTE | 2018-11-23 09:20 | LTR ---
November 23, 2018 Re: Grace Venegas Dear Dr. Vazquez: Ms. Grace Venegas presented to [facility] with chest discomfort and ruled in for acute peg-[id number]-[id number] myocardial infarction. She underwent a heart catheterization by Dr. Barroso and was found to have occluded LAD in the proximal portion. I did perform successful angioplasty and stenting of the LAD with good angiographic results and without any complication. Thank you for allowing us to participate in her care and please do not hesitate to call with any questions or concerns. Sincerely, Ricardo Frye MD MMWILLIEL / EDILMAN: [id number] /
--- NOTE | 2018-11-23 09:20 | PTCA ---
PERCUTANEOUSTRANS CORORONARY ANGIOGRAPHY DATE OF SERVICE: November 23, 2018 PERFORMING PHYSICIAN: Ricardo Frye MD, rn gastroenterology. PROCEDURE PERFORMED: Successful stenting of the ostial and proximal left anterior descending artery using 3.0 x 28 mm Xience drug-eluting stent which was post dilated using 3.5 mm NC balloon with an excellent angiographic results and reduction of stenosis from the 100% to 0%. INDICATION: This is a 53-year-old female patient who presented to the hospital with chest discomfort and continues to have chest discomfort. She was ruled in for acute non- ST- elevation myocardial infarction. She underwent heart catheterization by Dr. Barroso and was found to have chronic total occlusion of the right coronary artery which fills by collaterals from the left circumflex as well as occluded LAD which was the culprit lesion. Because of that, percutaneous coronary intervention of the LAD was advised. APPROACH: Right common femoral artery. COMPLICATION: None. LEVEL OF SEDATION: Moderate with a sedation length of 53 minutes. PROCEDURE DESCRIPTION: Please refer to the diagnostic heart catheterization that was performed by Dr. Barroso. Anticoagulation was initiated using Angiomax. Subsequently I took JL3.5 guide and the left main was engaged. I did cross the acute total occlusion in the proximal LAD using a whisper wire with the backup support of SuperCross catheter. After that I did balloon angioplasty initially using 2.0 mm balloon and subsequently 3.0 mm balloon before I deployed 3.0 x 28 mm Xience drug-eluting stent where the stent was positioned under fluoroscopy guidance and deployed under 16 atmospheres for 20 seconds with a post dilated stent using 3.5 mm NC balloon. The final angiogram showed good results and the procedure was completed without any complication. POSTPROCEDURE MANAGEMENT: 1. Dual anti-platelet therapy. 2. Risk factors modifications. 3. Follow up with the patient. MMODL / IJN: [id number] /
--- NOTE | 2018-11-23 11:29 | P.PN ---
Subjective Progress Note Date: 11/23/18 This is a 53-year-old female, patient of Dr. Vazquez. She has a known past medical history of diabetes mellitus and hypertension. Patient presents to the emergency room with complaints of chest pain in the center of the chest. The chest pains of been intermittent for the last week. Associated symptoms are shortness of breath and nausea. 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 She's never had symptoms like this before. No cardiac history. No family cardiac history. She denies any smoking or alcohol use. Troponin elevated at 0.045. She's been placed on IV heparin. Cardiology has been consulted. She is slight improvement in her chest pain with the nitro. Chest x-ray showed no acute changes did reveal nipple shadows. EKG sinus bradycardia with a heart rate of 59 anterior infarct age undetermined and a possible left atrial enlargement. Patient denies any cough, fever, chills, sweats, vomiting, dizziness or lighthe adedness, bowel movement changes or urinary symptoms. Patient had elevated LFTs ALT 70 and AST 43. Amylase and lipase are normal. Denies any abdominal pain. Denies any history of alcohol use or hepatitis. 11/23/2018 patient diagnosed with acute non-ST elevated myocardial infarction. The highest troponin was 5.7-0. She underwent urgent heart catheterization with angioplasty and stenting to the LAD earlier this morning. Now she is chest pain-free. Cardiology is placed patient on aspirin brilinta and beta jeffry. Patient denies any nausea or vomiting or chest pain or shortness of breath. A1c is 9.3 blood sugars are in the 200s. Patient has been seen by the dietitian. Continue a diabetic heart healthy diet. Increase the glipizide to 5 mg twice a day. Metformin currently on hold due to patient being in the hospital having heart catheterization. Liver enzymes are still elevated and increasing. Hepatitis panel was negative. Abdominal ultrasound had revealed a gallstone no acute process. Triglycerides are 245 cholesterol 231 LDL 145 and HDL 37 Objective - Vital Signs Vital signs: Vital Signs Temp 97.1 F L 11/23/18 04:30 Pulse 63 11/23/18 04:00 Resp 59 H 11/23/18 04:30 BP 134/72 11/23/18 04:30 Pulse Ox 95 11/23/18 04:30 Intake & Output 11/22/18 11/23/18 11/23/18 18:59 06:59 18:59 Intake Total 89.653 226 Output Total 850 Balance 89.653 -624 Weight 45.359 kg 45 kg Intake: IV 226 Intake, IV Titration 89.653 Amount Heparin Sod,Pork in 0.45% 89.653 NaCl 25,000 unit In 0.45 % NaCl 1 250ml.bag @ 12 UNITS/KG/HR 5.443 mls/hr IV .Q24H [facility] Rx#: [id number] Output: Urine 850 Other: Voiding Method Toilet # Voids 2 - Exam Head normocephalic Neck supple Lungs clear to auscultation bilaterally no wheezing or crackles Heart regular rate and rhythm S1-S2, no rub or gallop Abdomen is soft nontender nondistended positive bowel sounds no hepatosplenomegaly Extremities no edema Neuro alert and orientated to 3 - Labs CBC & Chem 7: 11/23/18 05:56 11/23/18 05:56 Labs: Abnormal Lab Results - Last 24 Hours (Table) 11/22/18 11/22/18 11/22/18 Range/Units 13:15 13:15 13:15 RBC 6.14 H (3.80-5.40) m/uL MCV 69.1 L (80.0-100.0) fL MCH 20.3 L (25.0-35.0) pg MCHC 29.4 L (31.0-37.0) g/dL APTT (22.0-30.0) sec Sodium 136 L (137-145) mmol/L Creatinine 0.40 L (0.52-1.04) mg/dL Glucose 221 H (74-99) mg/dL POC Glucose (mg/dL) (75-99) mg/dL Hemoglobin A1c (4.0-6.0) % AST 43 H (14-36) U/L ALT 70 H (9-52) U/L Troponin I 0.045 H* (0.000-0.034) ng/mL Total Protein 8.5 H (6.3-8.2) g/dL Triglycerides (<150) mg/dL Cholesterol (<200) mg/dL LDL Cholesterol, Calc (0-99) mg/dL HDL Cholesterol (40-60) mg/dL 11/22/18 11/22/18 11/22/18 Range/Units 19:08 19:08 21:02 RBC (3.80-5.40) m/uL MCV (80.0-100.0) fL MCH (25.0-35.0) pg MCHC (31.0-37.0) g/dL APTT (22.0-30.0) sec Sodium (137-145) mmol/L Creatinine (0.52-1.04) mg/dL Glucose (74-99) mg/dL POC Glucose (mg/dL) 245 H (75-99) mg/dL Hemoglobin A1c 9.3 H (4.0-6.0) % AST (14-36) U/L ALT (9-52) U/L Troponin I 0.367 H* (0.000-0.034) ng/mL Total Protein (6.3-8.2) g/dL Triglycerides (<150) mg/dL Cholesterol (<200) mg/dL LDL Cholesterol, Calc (0-99) mg/dL HDL Cholesterol (40-60) mg/dL 11/22/18 11/23/18 11/23/18 Range/Units 21:58 00:55 05:56 RBC 5.76 H (3.80-5.40) m/uL MCV 68.7 L (80.0-100.0) fL MCH 20.2 L (25.0-35.0) pg MCHC 29.4 L (31.0-37.0) g/dL APTT 30.2 H (22.0-30.0) sec Sodium (137-145) mmol/L Creatinine (0.52-1.04) mg/dL Glucose (74-99) mg/dL POC Glucose (mg/dL) (75-99) mg/dL Hemoglobin A1c (4.0-6.0) % AST (14-36) U/L ALT (9-52) U/L Troponin I 5.720 H* (0.000-0.034) ng/mL Total Protein (6.3-8.2) g/dL Triglycerides (<150) mg/dL Cholesterol (<200) mg/dL LDL Cholesterol, Calc (0-99) mg/dL HDL Cholesterol (40-60) mg/dL 11/23/18 11/23/18 11/23/18 Range/Units 05:56 05:56 06:06 RBC (3.80-5.40) m/uL MCV (80.0-100.0) fL MCH (25.0-35.0) pg MCHC (31.0-37.0) g/dL APTT 42.3 H (22.0-30.0) sec Sodium 135 L (137-145) mmol/L Creatinine 0.43 L (0.52-1.04) mg/dL Glucose 261 H (74-99) mg/dL POC Glucose (mg/dL) 245 H (75-99) mg/dL Hemoglobin A1c (4.0-6.0) % AST 198 H (14-36) U/L ALT 77 H (9-52) U/L Troponin I (0.000-0.034) ng/mL Total Protein (6.3-8.2) g/dL Triglycerides 245 H (<150) mg/dL Cholesterol 231 H (<200) mg/dL LDL Cholesterol, Calc 145 H (0-99) mg/dL HDL Cholesterol 37 L (40-60) mg/dL Assessment and Plan Assessment: 1. Acute non-ST elevated myocardial infarction: Status post heart catheterization with angioplasty and stenting to the LAD. IV heparin has been stopped. Cardiology has added the aspirin, Brilinta, beta jeffry and Lipitor. Patient is on an ARB as well. 2. Diabetes mellitus type 2: Uncontrolled blood sugars. A1c 9.3 increase the glipizide to 5 mg twice a day. Hold metformin. Add sliding scale coverage with Accu-Cheks every before meals and at bedtime. 3. Essential hypertension: Blood pressures controlled 4. Elevated LFTs no abdominal pain. Acute hepatitis panel negative. Abdominal ultrasound did reveal a large gallstone in no acute process. Patient denies any alcohol use. She denies being on any cholesterol medications or Tylenol at home GI prophylaxis Protonix I performed an examination of the patient and discussed their management with the physician Technician Automatic. I have reviewed the Physician Technician Automatic's notes and agree with the documented findings and plan of care
[2018-11-23 11:36] LABS: Glucose,Whole Blood 242 mg/dL (75-99)
--- NOTE | 2018-11-23 11:55 | ECHOF ---
Referral Reason:Chest pain MEASUREMENTS -------- HEIGHT: 152.4 cm WEIGHT: 44.9 kg BP: 107/64 RVIDd: 2.5 cm (< 3.3) IVSd: 1.4 cm (0.6 - 1.1) LVIDd: 4.1 cm (3.9 - 5.3) LVPWd: 1.3 cm (0.6 - 1.1) IVSs: 1.5 cm LVIDs: 2.9 cm LVPWs: 1.6 cm LAESV Index (A-L): 27.00 ml/m Ao Diam: 2.9 cm (2.0 - 3.7) AV Cusp: 1.4 cm (1.5 - 2.6) LA Diam: 2.9 cm (2.7 - 3.8) EPSS: 0.7 cm MV E Larry: 1.00 m/s MV DecT: 202 ms MV A Larry: 0.86 m/s MV E/A Ratio: 1.16 RAP: 5.00 mmHg RVSP: 8.86 mmHg MV EF SLOPE: 123.84 mm/s (70 - 150) MV EXCURSION: 1.69 cm (> 18.000) FINDINGS -------- Sinus rhythm. This was a technically good study. The left ventricular size is normal. There is mild concentric left ventricular hypertrophy. Overa ll left ventricular systolic function is mild-moderately impaired with, an EF between 40 - 45 %. Mi tral Doppler inflow pattern suggests diastolic filling abnormality 16.50. Apical septum LV wall mot ion is hypokinetic. Pender Hypokinesis. The right ventricle is normal in size and function. Normal LA size by volume 22+/-6 ml/m2. The right atrium is normal in size. Aortic valve is trileaflet and is mildly thickened. Trace amount of aortic regurgitation. There is no evidence of aortic stenosis. The mitral valve leaflets are mildly thickened. There is trace to mild mitral regurgitation. Trace tricuspid regurgitation present. Right ventricular systolic pressure is normal at < 35 mmHg. There is no evidence of pulmonary hypertension. Trace/mild (physiologic) pulmonic regurgitation. The aortic root size is normal. Normal inferior vena cava with normal inspiratory collapse consistent with estimated right atrial pre ssure of 5 mmHg. There is no pericardial effusion. CONCLUSIONS -------- 1. Sinus rhythm. 2. This was a technically good study. 3. The left ventricular size is normal. 4. There is mild concentric left ventricular hypertrophy. 5. Overall left ventricular systolic function is mild-moderately impaired with, an EF between 40 - 45 %. 6. Apical septum LV wall motion is hypokinetic. 7. Pender Hypokinesis. 8. Normal LA size by volume 22+/-6 ml/m2. 9. Aortic valve is trileaflet and is mildly thickened. 10. Trace amount of aortic regurgitation. 11. The mitral valve leaflets are mildly thickened. 12. There is trace to mild mitral regurgitation. 13. Trace tricuspid regurgitation present. 14. Right ventricular systolic pressure is normal at < 35 mmHg. 15. There is no evidence of pulmonary hypertension. 16. Trace/mild (physiologic) pulmonic regurgitation. 17. The aortic root size is normal. 18. There is no pericardial effusion. PLASTICS PROCESS HAND: Ihsan Tiwari RDCS
[2018-11-23 12:06] VITALS: BMI 19.3
[2018-11-23] MEDS: TICAGRELOR 90 MG TAB PO SCH ×2 (12:25→21:45)
[2018-11-23] MEDS: METOPROLOL TARTRATE 12.5 MG TAB PO SCH ×2 (13:39→21:45)
[2018-11-23] MEDS: LINAGLIPTIN 5 MG TABLET PO SCH (13:41)
[2018-11-23 16:29] LABS: Glucose,Whole Blood 189 mg/dL (75-99)
[2018-11-23] MEDS: HEPARIN SOD,PORK IN 0.45% NACL 25,000 UNIT in 0.45% NACL 1 250ML.BAG IV SCH (17:20)
[2018-11-23] MEDS: glipiZIDE 5 MG TAB PO SCH (17:34)
[2018-11-23 20:54] LABS: Glucose,Whole Blood 232 mg/dL (75-99)
[2018-11-23] MEDS: ATORVASTATIN 80 MG TAB PO SCH (21:45)
[2018-11-23] MEDS: LOSARTAN-HCTZ 50-12.5 MG 1 EACH TAB PO SCH (22:40)
[2018-11-24 05:45] LABS: Glucose,Whole Blood 219 mg/dL (75-99)
[2018-11-24 06:48] LABS: Basophils % (A) 0 %; Eosinophils # (A) 0.1 k/uL (0-0.7); Eosinophils % (A) 2 %; HCT 36.7 % (34.0-46.0); Hypochromasia Marked; Lymphocytes # (A) 1.5 k/uL (1.0-4.8); Lymphocytes % (A) 20 %; MCH 20.5 pg (25.0-35.0); MCHC 29.9 g/dL (31.0-37.0); MCV 68.6 fL (80.0-100.0); Mean Platelet Volume 6.8; Microcytosis Moderate; Monocytes # (A) 0.4 k/uL (0-1.0); Monocytes % (A) 5 %; Neutrophils # (A) 5.2 k/uL (1.3-7.7); Neutrophils % (A) 72 %; Platelet Count 237 k/uL (150-450); RBC 5.35 m/uL (3.80-5.40); RDW 14.6 % (11.5-15.5); WBC 7.3 k/uL (3.8-10.6)
[2018-11-24 07:02] LABS: ALT 80 U/L (9-52); AST 187 U/L (14-36); Albumin 3.5 g/dL (3.5-5.0); Alkaline Phosphatase 57 U/L (38-126); Anion Gap 5 mmol/L; Blood Urea Nitrogen 15 mg/dL (7-17); Calcium 9.2 mg/dL (8.4-10.2); Carbon Dioxide 27 mmol/L (22-30); Chloride 107 mmol/L (98-107); Glucose 170 mg/dL (74-99); Sodium 139 mmol/L (137-145); Total Bilirubin 0.9 mg/dL (0.2-1.3); Total Protein 6.3 g/dL (6.3-8.2)
[2018-11-24] MEDS: NITROGLYCERIN-D5W PMX 50 MG in DEXTROSE/WATER 1 250ML.BAG IV SCH (07:06)
[2018-11-24] MEDS: PANTOPRAZOLE 40 MG TABLET PO SCH (07:07)
[2018-11-24] MEDS: glipiZIDE 5 MG TAB PO SCH ×2 (07:07→17:28)
[2018-11-24] MEDS: INSULIN ASPART (NovoLOG) 100 UNIT/ML VIAL SQ SCH ×4 (07:07→21:07)
[2018-11-24] MEDS: METOPROLOL TARTRATE 12.5 MG TAB PO SCH ×2 (09:06→21:07)
[2018-11-24] MEDS: TICAGRELOR 90 MG TAB PO SCH ×2 (09:06→21:07)
[2018-11-24] MEDS: LINAGLIPTIN 5 MG TABLET PO SCH (09:06)
[2018-11-24] MEDS: ASPIRIN 81 MG PO SCH (09:06)
[2018-11-24 11:48] LABS: Glucose,Whole Blood 268 mg/dL (75-99)
[2018-11-24 11:48] LABS: Glucose,Whole Blood 311 mg/dL (75-99)
--- NOTE | 2018-11-24 12:09 | P.PN ---
Subjective Progress Note Date: 11/24/18 this is a pleasant 53-year-old female has a known history of diabetes, hypertension, hyperlipidemia, presented to the hospital with a non-Q-wave myocardial infarction.she was taken to the cardiac catheterization laboratory she was found to have a total occlusion of the proximal LAD, the PLV branch of the right coronary artery was subtotally occluded which appear to be chronic. Subsequent to that patient did undergo angioplasty and stenting of the LAD. She was seen and examined this morning, denied any chest pain and breathing overall has been stable. Blood pressure this morning 108/60 with a heart rate in the 80s, temperature 90.8, 100% on room air.White blood cell count 7.3, hemoglobin 11.0, platelet count 237. Sodium 139, potassium 4.0, BUN 15 and creatinine 0.4.AST 187 and ALT 80. Echocardiogram with Doppler study revealed an ejection fraction of 40-45% with apical hypokinesia noted. Objective - Vital Signs Vital signs: Vital Signs Temp 98.7 F 11/24/18 11:30 Pulse 75 11/24/18 11:30 Resp 18 11/24/18 11:30 BP 106/60 11/24/18 11:30 Pulse Ox 100 11/24/18 11:30 Intake & Output 11/23/18 11/24/18 11/24/18 18:59 06:59 18:59 Intake Total 688 460 Output Total 850 Balance -162 460 Weight 45 kg Intake: IV 226 10 Invasive Line 1 10 Intake, IV Titration 450 Amount Sodium Chloride 0.9% 1, 450 000 ml @ 75 mls/hr IV . [id number] [facility] Rx#:[id number] Oral 462 Output: Urine 850 Other: Voiding Method Toilet Toilet - Exam Head normocephalic Neck supple Lungs clear to auscultation bilaterally no wheezing or crackles Heart regular rate and rhythm S1-S2, no rub or gallop Abdomen is soft nontender nondistended positive bowel sounds no hepatosplenomegaly Extremities no edema, right groin is soft with no evidence of any hematoma. Neuro alert and orientated to 3 - Labs CBC & Chem 7: 11/24/18 06:14 11/24/18 06:14 Labs: Abnormal Lab Results - Last 24 Hours (Table) 11/23/18 11/23/18 11/24/18 Range/Units 16:23 20:53 05:45 Hgb (11.4-16.0) gm/dL MCV (80.0-100.0) fL MCH (25.0-35.0) pg MCHC (31.0-37.0) g/dL Creatinine (0.52-1.04) mg/dL Glucose (74-99) mg/dL POC Glucose (mg/dL) 189 H 232 H 219 H (75-99) mg/dL AST (14-36) U/L ALT (9-52) U/L 11/24/18 11/24/18 11/24/18 Range/Units 06:14 06:14 11:46 Hgb 11.0 L (11.4-16.0) gm/dL MCV 68.6 L (80.0-100.0) fL MCH 20.5 L (25.0-35.0) pg MCHC 29.9 L (31.0-37.0) g/dL Creatinine 0.44 L (0.52-1.04) mg/dL Glucose 170 H (74-99) mg/dL POC Glucose (mg/dL) 311 H (75-99) mg/dL AST 187 H (14-36) U/L ALT 80 H (9-52) U/L 11/24/18 Range/Units 11:47 Hgb (11.4-16.0) gm/dL MCV (80.0-100.0) fL MCH (25.0-35.0) pg MCHC (31.0-37.0) g/dL Creatinine (0.52-1.04) mg/dL Glucose (74-99) mg/dL POC Glucose (mg/dL) 268 H (75-99) mg/dL AST (14-36) U/L ALT (9-52) U/L Assessment and Plan Plan: assessment and plan #1 non-ST elevation DC status post angioplasty and stenting of the LAD 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 #2 hypertension #3 hyperlipidemia #4 diabetes Plan We will continue the patient on her current medications. She's been encouraged to be up ambulating in the hallway today. Plan for possible discharge home in 24 hours if stable. DNP note has been reviewed, I agree with a documented findings and plan of care. Patient was seen and examined.
--- NOTE | 2018-11-24 13:40 | P.PN ---
Subjective Progress Note Date: 11/24/18 This is a 53-year-old female, patient of Dr. Vazquez. She has a known past medical history of diabetes mellitus and hypertension. Patient presents to the emergency room with complaints of chest pain in the center of the chest. The chest pains of been intermittent for the last week. Associated symptoms are shortness of breath and nausea. 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 She's never had symptoms like this before. No cardiac history. No family cardiac history. She denies any smoking or alcohol use. Troponin elevated at 0.045. She's been placed on IV heparin. Cardiology has been consulted. She is slight improvement in her chest pain with the nitro. Chest x-ray showed no acute changes did reveal nipple shadows. EKG sinus bradycardia with a heart rate of 59 anterior infarct age undetermined and a possible left atrial enlargement. Patient denies any cough, fever, chills, sweats, vomiting, dizziness or lighthea dedness, bowel movement changes or urinary symptoms. Patient had elevated LFTs ALT 70 and AST 43. Amylase and lipase are normal. Denies any abdominal pain. Denies any history of alcohol use or hepatitis. 11/23/2018 patient diagnosed with acute non-ST elevated myocardial infarction. The highest troponin was 5.7-0. She underwent urgent heart catheterization with angioplasty and stenting to the LAD earlier this morning. Now she is chest pain-free. Cardiology is placed patient on aspirin brilinta and beta jeffry. Patient denies any nausea or vomiting or chest pain or shortness of breath. A1c is 9.3 blood sugars are in the 200s. Patient has been seen by the dietitian. Continue a diabetic heart healthy diet. Increase the glipizide to 5 mg twice a day. Metformin currently on hold due to patient being in the hospital having heart catheterization. Liver enzymes are still elevated and increasing. Hepatitis panel was negative. Abdominal ultrasound had revealed a gallstone no acute process. Triglycerides are 245 cholesterol 231 LDL 145 and HDL 37 On 11/24/2018 patient is currently resting comfortably in bed post heart catheterization and stent to the LAD yesterday. Discussed case with cardiology MEDIA SUPERVISOR requesting patient stay for another 24-hour's likely discharge tomorrow on 11/25/2018 patient remains at this time on Brilinta and beta jeffry. At this time patient has been up ambulating through halls. Patient denies chest pain or shortness of breath. Patient denies nausea vomiting or diarrhea. Patient denies any urinary burning or frequency. Objective - Vital Signs Vital signs: Vital Signs Temp 98.7 F 11/24/18 11:30 Pulse 75 11/24/18 11:30 Resp 18 11/24/18 12:00 BP 106/60 11/24/18 11:30 Pulse Ox 100 11/24/18 11:30 Intake & Output 11/23/18 11/24/18 11/24/18 18:59 06:59 18:59 Intake Total 688 460 Output Total 850 Balance -162 460 Weight 45 kg Intake: IV 226 10 Invasive Line 1 10 Intake, IV Titration 450 Amount Sodium Chloride 0.9% 1, 450 000 ml @ 75 mls/hr IV . [id number] [facility] Rx#:[id number] Oral 462 Output: Urine 850 Other: Voiding Method Toilet Toilet - Exam Head normocephalic Neck supple Lungs clear to auscultation bilaterally no wheezing or crackles Heart regular rate and rhythm S1-S2, no rub or gallop Abdomen is soft nontender nondistended positive bowel sounds no hepatosplenomegaly Extremities no edema Neuro alert and orientated to 3 - Labs CBC & Chem 7: 11/24/18 06:14 11/24/18 06:14 Labs: Abnormal Lab Results - Last 24 Hours (Table) 11/23/18 11/23/18 11/24/18 Range/Units 16:23 20:53 05:45 Hgb (11.4-16.0) gm/dL MCV (80.0-100.0) fL MCH (25.0-35.0) pg MCHC (31.0-37.0) g/dL Creatinine (0.52-1.04) mg/dL Glucose (74-99) mg/dL POC Glucose (mg/dL) 189 H 232 H 219 H (75-99) mg/dL AST (14-36) U/L ALT (9-52) U/L 11/24/18 11/24/18 11/24/18 Range/Units 06:14 06:14 11:46 Hgb 11.0 L (11.4-16.0) gm/dL MCV 68.6 L (80.0-100.0) fL MCH 20.5 L (25.0-35.0) pg MCHC 29.9 L (31.0-37.0) g/dL Creatinine 0.44 L (0.52-1.04) mg/dL Glucose 170 H (74-99) mg/dL POC Glucose (mg/dL) 311 H (75-99) mg/dL AST 187 H (14-36) U/L ALT 80 H (9-52) U/L 11/24/18 Range/Units 11:47 Hgb (11.4-16.0) gm/dL MCV (80.0-100.0) fL MCH (25.0-35.0) pg MCHC (31.0-37.0) g/dL Creatinine (0.52-1.04) mg/dL Glucose (74-99) mg/dL POC Glucose (mg/dL) 268 H (75-99) mg/dL AST (14-36) U/L ALT (9-52) U/L Assessment and Plan Assessment: 1. Acute non-ST elevated myocardial infarction: Status post heart catheterization with angioplasty and stenting to the LAD. IV heparin has been stopped. Cardiology has added the aspirin, Brilinta, beta jeffry and Lipitor. Patient is on an ARB as well. 2. Diabetes mellitus type 2: Uncontrolled blood sugars. A1c 9.3 increase the glipizide to 5 mg twice a day. Hold metformin. Add sliding scale coverage with Accu-Cheks every before meals and at bedtime. 3. Essential hypertension: Blood pressures controlled 4. Elevated LFTs no abdominal pain. Acute hepatitis panel negative. Abdominal ultrasound did reveal a large gallstone in no acute process. Patient denies any alcohol use. She denies being on any cholesterol medications or Tylenol at home GI prophylaxis Protonix Anticipate discharge in the next 24-48 hours I performed an examination of the patient and discussed their management with the Nurse Practitioner. I have reviewed the Nurse Practitioner's notes and agree with the documented findings and plan of care
[2018-11-24 16:15] LABS: Glucose,Whole Blood 241 mg/dL (75-99)
[2018-11-24 20:55] LABS: Glucose,Whole Blood 246 mg/dL (75-99)
[2018-11-24] MEDS: ATORVASTATIN 80 MG TAB PO SCH (21:07)
[2018-11-24] MEDS: LOSARTAN-HCTZ 50-12.5 MG 1 EACH TAB PO SCH (21:07)
[2018-11-25 06:00] LABS: Glucose,Whole Blood 136 mg/dL (75-99)
[2018-11-25] MEDS: INSULIN ASPART (NovoLOG) 100 UNIT/ML VIAL SQ SCH ×2 (06:26→12:07)
[2018-11-25] MEDS: PANTOPRAZOLE 40 MG TABLET PO SCH (06:26)
[2018-11-25] MEDS: glipiZIDE 5 MG TAB PO SCH (06:26)
[2018-11-25 07:46] LABS: ALT 82 U/L (9-52); AST 100 U/L (14-36); Albumin 3.9 g/dL (3.5-5.0); Alkaline Phosphatase 62 U/L (38-126); Anion Gap 5 mmol/L; Blood Urea Nitrogen 11 mg/dL (7-17); Calcium 9.5 mg/dL (8.4-10.2); Carbon Dioxide 30 mmol/L (22-30); Chloride 104 mmol/L (98-107); Glucose 135 mg/dL (74-99); Sodium 139 mmol/L (137-145); Total Bilirubin 0.9 mg/dL (0.2-1.3); Total Protein 7.1 g/dL (6.3-8.2)
[2018-11-25 07:48] LABS: Basophils % (A) 1 %; Eosinophils # (A) 0.3 k/uL (0-0.7); Eosinophils % (A) 4 %; HCT 37.3 % (34.0-46.0); HGB 11.2 gm/dL (11.4-16.0); Hypochromasia Marked; Lymphocytes # (A) 1.6 k/uL (1.0-4.8); Lymphocytes % (A) 25 %; MCH 20.7 pg (25.0-35.0); MCV 69.2 fL (80.0-100.0); Mean Platelet Volume 6.9; Microcytosis Moderate; Monocytes # (A) 0.4 k/uL (0-1.0); Monocytes % (A) 6 %; Neutrophils % (A) 63 %; Platelet Count 246 k/uL (150-450); RBC 5.38 m/uL (3.80-5.40); RDW 14.7 % (11.5-15.5); WBC 6.4 k/uL (3.8-10.6)
[2018-11-25] MEDS: METOPROLOL TARTRATE 12.5 MG TAB PO SCH (09:03)
[2018-11-25] MEDS: TICAGRELOR 90 MG TAB PO SCH (09:03)
[2018-11-25] MEDS: ASPIRIN 81 MG PO SCH (09:03)
[2018-11-25] MEDS: LINAGLIPTIN 5 MG TABLET PO SCH (09:03)
[2018-11-25 11:13] LABS: Glucose,Whole Blood 231 mg/dL (75-99)
[2018-11-25 12:00] VITALS: RESP 16
--- NOTE | 2018-11-25 12:24 | P.PN ---
Subjective Progress Note Date: 11/25/18 This is a pleasant 53-year-old female has a known history of diabetes, hypertension, hyperlipidemia, presented to the hospital with a non-Q-wave myocardial infarction.she was taken to the cardiac catheterization laboratory she was found to have a total occlusion of the proximal LAD, the PLV branch of the right coronary artery was subtotally occluded which appear to be chronic. Subsequent to that patient did undergo angioplasty and stenting of the LAD. She was seen and examined this morning, denied any chest pain and breathing overall has been stable. Blood pressure this morning 108/60 with a heart rate in the 80s, temperature 90.8, 100% on room air.White blood cell count 7.3, hemoglobin 11.0, platelet count 237. Sodium 139, potassium 4.0, BUN 15 and creatinine 0.4.AST 187 and ALT 80. Echocardiogram with Doppler study revealed an ejection fraction of 40-45% with apical hypokinesia noted. 11/25/2018 Patient seen and examined this morning, denied any chest pain, no difficulty in breathing. Hemodynamically stable. Blood pressure 102/60 with a heart rate in the 80s, 99% on room air. White blood cell count 6.4, hemoglobin 11.2, platelet count 246. Sodium 139, potassium 4.0, BUN 11 and creatinine 0.4. Objective - Vital Signs Vital signs: Vital Signs Temp 98 F 11/25/18 08:00 Pulse 80 11/25/18 08:00 Resp 16 11/25/18 08:00 BP 94/74 11/25/18 08:00 Pulse Ox 100 11/25/18 08:00 Intake & Output 11/24/18 11/25/18 11/25/18 18:59 06:59 18:59 Intake Total 240 Balance 240 Weight 44.5 kg Intake: Oral 240 Other: Voiding Method Toilet Toilet Toilet # Voids 2 # Bowel Movements 1 - Exam Head normocephalic Neck supple Lungs clear to auscultation bilaterally no wheezing or crackles Heart regular rate and rhythm S1-S2, no rub or gallop Abdomen is soft nontender nondistended positive bowel sounds no hepatosplenomegaly Extremities no edema, right groin is soft with no evidence of any hematoma. Neuro alert and orientated to 3 - Labs CBC & Chem 7: 11/25/18 06:38 11/25/18 06:38 Labs: Abnormal Lab Results - Last 24 Hours (Table) 11/24/18 11/24/18 11/25/18 Range/Units 16:14 20:51 05:59 Hgb (11.4-16.0) gm/dL MCV (80.0-100.0) fL MCH (25.0-35.0) pg MCHC (31.0-37.0) g/dL Creatinine (0.52-1.04) mg/dL Glucose (74-99) mg/dL POC Glucose (mg/dL) 241 H 246 H 136 H (75-99) mg/dL AST (14-36) U/L ALT (9-52) U/L 11/25/18 11/25/18 11/25/18 Range/Units 06:38 06:38 11:11 Hgb 11.2 L (11.4-16.0) gm/dL MCV 69.2 L (80.0-100.0) fL MCH 20.7 L (25.0-35.0) pg MCHC 30.0 L (31.0-37.0) g/dL Creatinine 0.43 L (0.52-1.04) mg/dL Glucose 135 H (74-99) mg/dL POC Glucose (mg/dL) 231 H (75-99) mg/dL AST 100 H (14-36) U/L ALT 82 H (9-52) U/L Assessment and Plan Plan: assessment and plan #1 non-ST elevation NH status post angioplasty and stenting of the LAD patient also has a OIL PUMPER of the right coronary artery. #2 hypertension #3 hyperlipidemia #4 diabetes Plan We will continue the patient on her current medications. Patient may be able to be discharged home today. We will make her a follow-up appointment to see Dr. VC Barroso in the office post discharge. Patient will be discharged home on aspirin 81 mg daily, Lipitor 80 mg daily, Glucotrol, losartan, metoprolol 25 daily, Brilinta 90 mg one tablet by mouth twice a day and sublingual n itroglycerin as needed for chest pain. DNP note has been reviewed, I agree with a documented findings and plan of care. Patient was seen and examined.
--- NOTE | 2018-11-25 13:14 | P.DS ---
Providers Date of admission: 11/23/18 10:38 Expected date of discharge: 11/25/18 Attending physician: Marlyn Bang Consults: 11/22/18 15:12 Consult Physician Urgent Consulting Provider: Lissette Mane Consult Reason/Comments: ua Do you want consulting provider notified?: Yes 11/23/18 08:39 Consult Physician Routine Consulting Provider: [facility] Consult Reason/Comments: Post Interventional patient Do you want consulting provider notified?: Already Contacted Primary care physician: Cecil Vazquez Hospital Course: Discharge diagnosis 1. Acute non-ST elevated myocardial infarction: Status post heart catheterization with angioplasty and stenting to the LAD. Cardiology has added the aspirin, Brilinta, beta jeffry and Lipitor. Patient is on an ARB as well. 2. Diabetes mellitus type 2: Uncontrolled blood sugars. A1c 9.3 Glucovance will be increased to twice a day. Tradjenta 5 mg daily added 3. Essential hypertension: Blood pressures controlled 4. Elevated LFTs no abdominal pain. Acute hepatitis panel negative. Abdominal ultrasound did reveal a large gallstone in no acute process. Patient denies any alcohol use. Recommend following up with LFTs in the office. Hospital course This is a 53-year-old female, patient of Dr. Vazquez. She has a known past medical history of diabetes mellitus and hypertension. Patient presents to the emergency room with complaints of chest pain in the center of the chest. The chest pains of been intermittent for the last week. Associated symptoms are shortness of breath and nausea. 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 She's never had symptoms like this before. No cardiac history. No family cardiac history. She denies any smoking or alcohol use. Troponin elevated at 0.045. She's been placed on IV heparin. Cardiology has been consulted. She is slight improvement in her chest pain with the nitro. Chest x-ray showed no acute changes did reveal nipple shadows. EKG sinus bradycardia with a heart rate of 59 anterior infarct age undetermined and a possible left atrial enlargement. Patient denies any cough, fever, chills, sweats, vomiting, dizziness or lightheadedness, bowel movement changes or urinary symptoms. Patient had elevated LFTs ALT 70 and AST 43. Amylase and lipase are normal. Denies any abdominal pain. Denies any history of alcohol use or hepatitis. 11/23/2018 patient diagnosed with acute non-ST elevated myocardial infarction. The highest troponin was 5.7-0. She underwent urgent heart catheterization with angioplasty and stenting to the LAD earlier this morning. Now she is chest pain-free. Cardiology is placed patient on aspirin brilinta and beta jeffry. Patient denies any nausea or vomiting or chest pain or shortness of breath. A1c is 9.3 blood sugars are in the 200s. Patient has been seen by the dietitian. Continue a diabetic heart healthy diet. Increase the glipizide to 5 mg twice a day. Metformin currently on hold due to patient being in the hospital having heart catheterization. Liver enzymes are still elevated and increasing. Hepatitis panel was negative. Abdominal ultrasound had revealed a gallstone no acute process. Triglycerides are 245 cholesterol 231 LDL 145 and HDL 37 On 11/24/2018 patient is currently resting comfortably in bed post heart catheterization and stent to the LAD yesterday. Discussed case with cardiology DIRECTOR PHONE requesting patient stay for another 24-hour's likely discharge tomorrow on 11/25/2018 patient remains at this time on Brilinta and beta jeffry. At this time patient has been up ambulating through halls. Patient denies chest pain or shortness of breath. Patient denies nausea vomiting or diarrhea. Patient bipin es any urinary burning or frequency. 11/25/2018 patient is medically stable for discharge. She has been cleared by cardiology for discharge. Cardiology has added aspirin, Brilinta metoprolol, Lipitor, and nitroglycerin as needed for her new cardiac meds. Patient is now chest pain-free. He has is cleared for discharge. She'll follow-up with him in the office on December 02. She'll follow-up with Dr. Vazquez on December 03 at this time also would recommend following up on her liver enzymes. Exact etiology for the elevated liver enzymes is unclear. Also will need to monitor closely while she is on the Lipitor. I performed an examination of the patient and discussed their management with the physician Screw Machine Operator Single Spindle. I have reviewed the Physician Screw Machine Operator Single Spindle's notes and agree with the documented findings and plan of care Patient Condition at Discharge: Stable Plan - Discharge Summary New Discharge Prescriptions: New Aspirin 81 mg PO DAILY #30 chew Ticagrelor [Brilinta] 90 mg PO BID #60 tab Atorvastatin [Lipitor] 80 mg PO HS #30 tab Metoprolol Tartrate [Lopressor] 25 mg PO DAILY #30 tab Nitroglycerin Sl Tabs [Nitrostat] 0.4 mg SUBLINGUAL Q5M PRN #25 tab PRN Reason: Chest Pain Linagliptin [Tradjenta] 5 mg PO DAILY #30 tablet Continue Losartan-Hctz 50-12.5 mg [Hyzaar 50-12.5] 1 tab PO HS Changed glyBURIDE/METFORMIN HCL [Glucovance 5-500 mg] 1 tab PO AC-BID #60 tablet Discharge Medication List Losartan-Hctz 50-12.5 mg [Hyzaar 50-12.5] 1 tab PO HS 10/02/16 [History] Aspirin 81 mg PO DAILY #30 chew 11/25/18 [Rx] Atorvastatin [Lipitor] 80 mg PO HS #30 tab 11/25/18 [Rx] Linagliptin [Tradjenta] 5 mg PO DAILY #30 tablet 11/25/18 [Rx] Metoprolol Tartrate [Lopressor] 25 mg PO DAILY #30 tab 11/25/18 [Rx] Nitroglycerin Sl Tabs [Nitrostat] 0.4 mg SUBLINGUAL Q5M PRN #25 tab 11/25/18 [Rx] Ticagrelor [Brilinta] 90 mg PO BID #60 tab 11/25/18 [Rx] glyBURIDE/METFORMIN HCL [Glucovance 5-500 mg] 1 tab PO AC-BID #60 tablet 11/25/18 [Rx] Follow up Appointment(s)/Referral(s): Cecil Vazquez MD [Primary Care Provider] - 12/03/18 10:30 am (Thursday -previously scheduled appointment) Jodie Barroso MD [STAFF PHYSICIAN] - 12/02/18 9:30 am () Ambulatory/Diagnostic Orders: Comprehensive Metabolic Panel [LAB.AMB] Time Frame: 1 Week, Location: None Selected Patient Instructions/Handouts: Heart Healthy Diet (DC), Coronary Intravascular Stent Placement (DC) Activity/Diet/Wound Care/Special Instructions: Diet: cardiac, diabetic Activity: as tolerated Discharge Disposition: HOME SELF-CARE
[2018-11-25 13:37] VITALS: BP 116/67; PULSE 74; TEMP 97.9
[2018-11-26] MEDS ORDERED: METOPROLOL TARTRATE 25 MG TAB PO SCH (09:00)
== END 2018-11-25 14:00 | disposition home or self-care (01) | DRG 247 ==
LOC: EC 12:19 → 3SCARD 15:12 → OBSVTOIN 11-23 10:38
PROVIDERS: ADMIT Internal Medicine; ATTEND Internal Medicine
PROC: B2111ZZ Fluoroscopy of Multiple Coronary Arteries using Low Osmolar Contrast (ICD-10-PCS; 2018-11-23)
PROC: 027034Z Dilation of Coronary Artery, One Artery with Drug-eluting Intraluminal Device, Percutaneous Approach (ICD-10-PCS; principal; 2018-11-23 07:00)
PROC: 4A023N7 Measurement of Cardiac Sampling and Pressure, Left Heart, Percutaneous Approach (ICD-10-PCS; 2018-11-23 07:00)
DX: I21.4 Non-ST elevation (NSTEMI) myocardial infarction (principal); K80.20 Calculus of gallbladder without cholecystitis without obstruction; Z87.442 Personal history of urinary calculi; I10 Essential (primary) hypertension; E11.65 Type 2 diabetes mellitus with hyperglycemia; E78.5 Hyperlipidemia, unspecified; G56.00 Carpal tunnel syndrome, unspecified upper limb; R94.5 Abnormal results of liver function studies; Z79.84 Long term (current) use of oral hypoglycemic drugs; Z79.899 Other long term (current) drug therapy; I25.10 Atherosclerotic heart disease of native coronary artery without angina pectoris
CPT/HCPCS: 36415; 71046; 76700; 80053; 80061; 80074; 82150; 83036; 83690; 83735; 83880; 84484; 85025; 85379; 85610; 85730; 93005; 93306; 93458; 96365; 96366; 96376; 99291; C1874

== ENCOUNTER → 2019-04-26 | Outpatient (CLI) | payer BC ==
--- NOTE | 2019-04-26 15:09 | MM ---
Reason for exam: screening (asymptomatic). Last mammogram was performed 3 years and 3 months ago. History: Patient is postmenopausal and is nulliparous. Physical Findings: A clinical breast exam by your physician is recommended on an annual basis and results should be correlated with mammographic findings. MG Screening Mammo w CAD Bilateral CC and MLO view(s) were taken. Prior study comparison: January 29, 2016, bilateral MG 3d screening mammo w/cad. December 15, 2014, bilateral MG screening mammo w CAD. The breast tissue is extremely dense which could obscure a lesion on mammography. there are a few benign-appearing round linear bilateral breast calcifications. No discrete abnormality. ASSESSMENT: Benign, BI-RAD 2 RECOMMENDATION: Routine screening mammogram of both breasts in 1 year.
== END | disposition home or self-care (01) ==
LOC: RADMAMWWP 06:53
PROVIDERS: ATTEND Internal Medicine
DX: Z12.31 Encounter for screening mammogram for malignant neoplasm of breast (principal)
CPT/HCPCS: 77067

== ENCOUNTER → 2021-12-23 | Outpatient (CLI) | payer OTHER ==
--- NOTE | 2021-12-23 22:54 | BD ---
EXAMINATION TYPE: Axial Bone Density DATE OF EXAM: 12/23/2021 COMPARISON: 09/03/2011 CLINICAL HISTORY: 56 years year old Female. ICD-10 CODE: N95.1 post menopausal symptoms Height: 59.5 IN Weight: 94.0 LBS RISK FACTORS HISTORY OF: Active: YES Postmenopausal woman: AGE 52 MEDICATIONS: Additional Medications: DIABETES MEDS, BLOOD PRESSURE MEDS EXAM MEASUREMENTS: Bone mineral densitometry was performed using the Fliptop System. Bone mineral density as measured about the Lumbar spine is: ----- L1-L4(G/cm2): 0.735 T Score Values are as follows: ----- L1: -3.8 ----- L2: -4.6 ----- L3: -4.0 ----- L4: -2.7 ----- L1-L4: -3.7 Bone mineral density has: Decreased -17.8% since study of: 09/03/2011 Bone mineral density about the R hip (g/cm2): 0.675 Bone mineral density about the L hip (g/cm2): 0.611 T Score values are as follows: -----R Neck: -2.6 -----L Neck: -3.1 -----R Total: -2.1 -----L Total: -2.3 Bone mineral density has: Decreased -24.3% since study of: 09/03/2011 FRAX%s: The graph provided illustrates a 6.3 chance for a major osteoporotic fx and a 2.0 chance for the hips probability for fx in 10 years time. IMPRESSION: Osteoporosis (T Score less than -2.5). There is increased fracture risk and therapy is usually indicated based on age. Re-Screen 1-2 years. NOTE: T-SCORE=SD OF THE YOUNG ADULT MEAN.
--- NOTE | 2021-12-24 08:57 | MM ---
Reason for exam: screening (asymptomatic). Last mammogram was performed 2 years and 8 months ago. History: Patient is postmenopausal and is nulliparous. Family history of breast cancer in sister at age 50. Physical Findings: A clinical breast exam by your physician is recommended on an annual basis and results should be correlated with mammographic findings. MG Screening Mammo w CAD Bilateral CC and MLO view(s) were taken. Prior study comparison: April 26, 2019, bilateral MG screening mammo w CAD. January 29, 2016, bilateral MG 3d screening mammo w/cad. The breast tissue is extremely dense which could obscure a lesion on mammography. Finding: There are typically benign round, linear, regional calcifications in the upper outer quadrant of both breasts. There is no discrete abnormality. ASSESSMENT: Benign, BI-RAD 2 RECOMMENDATION: Routine screening mammogram of both breasts in 1 year. Some consider bilateral ultrasound surveillance in patient with extremely dense fibroglandular tissue.
== END | disposition home or self-care (01) ==
LOC: RADMAMWWP 12:35
PROVIDERS: ATTEND Internal Medicine
DX: Z12.31 Encounter for screening mammogram for malignant neoplasm of breast (principal); M81.0 Age-related osteoporosis without current pathological fracture; Z80.3 Family history of malignant neoplasm of breast; Z78.0 Asymptomatic menopausal state
CPT/HCPCS: 77067; 77080

== ENCOUNTER → 2022-12-27 | Outpatient (CLI) | payer OTHER ==
[2022-12-27 12:58] LABS: HCT 45.1 % (37.2-46.3); HGB 12.8 g/dL (12.0-15.0); MCHC 28.4 g/dL (32.0-37.0); MCV 70.6 fL (80.0-97.0); Mean Platelet Volume 10.1 fL (9.5-12.2); NRBC Per 100 WBC 0 /100 WBCS (0.0-0.0); Platelet Count 229 X 10*3/uL (140-440); RBC 6.39 X 10*6/uL (4.10-5.20); RDW 16.7 % (11.5-14.5); WBC 5.34 X 10*3/uL (4.50-10.00)
[2022-12-27 13:08] LABS: African American GFR (CKD) 124.5 (60.0-200.0); Anion Gap 9.4 mmol/L (10.00-18.00); Blood Urea Nitrogen 13.1 mg/dL (9.0-27.0); Carbon Dioxide 27.6 mmol/L (20.0-27.5); Non-African American GFR(CKD) 107.4 (60.0-200.0); Potassium 4.1 mmol/L (3.5-5.5)
[2022-12-27 13:36] LABS: Basophils # (A) 0.04 X 10*3/uL (0.00-0.10); Basophils % (A) 0.7 %; Eosinophils % (A) 3.7 %; Immature Grans, Automated 0.2 %; Lymphocytes # (A) 1.72 X 10*3/uL (0.90-5.00); Lymphocytes % (A) 32.2 %; Monocytes # (A) 0.45 X 10*3/uL (0.20-1.00); Monocytes % (A) 8.4 %; Neutrophils # (A) 2.92 X 10*3/uL (1.80-7.70); Neutrophils % (A) 54.8 %
[2022-12-27 13:37] LABS: Elliptocytes 2+; Microcytosis (M) 2+
== END | disposition home or self-care (01) ==
LOC: LABPAT 09:30
PROVIDERS: ATTEND Internal Medicine
DX: Z01.812 Encounter for preprocedural laboratory examination (principal); I25.10 Atherosclerotic heart disease of native coronary artery without angina pectoris
CPT/HCPCS: 80051; 82565; 84520; 85025

== ENCOUNTER 2022-12-31 06:08 | Day surgery (SDC) | payer OTHER ==
[2022-12-31] MEDS ORDERED: ALPRAZolam 0.5 MG TAB PO PRN (06:29)
[2022-12-31] MEDS ORDERED: ALPRAZolam 0.25 MG TAB PO PRN (06:29)
[2022-12-31] MEDS ORDERED: HEPARIN SODIUM,PORCINE 10,000 UNIT in SODIUM CHLORIDE 0.9% 1,000 ML IRRIGATION PRN (06:29)
[2022-12-31] MEDS ORDERED: HEPARIN SODIUM,PORCINE 2,500 UNIT in SODIUM CHLORIDE 0.9% 250 ML IRRIGATION PRN (06:29)
[2022-12-31] MEDS ORDERED: ASPIRIN 325 MG TAB PO STA (06:29)
[2022-12-31] MEDS ORDERED: NITROGLYCERIN SL TABS 0.4 MG TAB SUBLINGUAL PRN (06:29)
[2022-12-31] MEDS ORDERED: ATORVASTATIN 80 MG TAB PO STA (06:29)
[2022-12-31] MEDS: SODIUM CHLORIDE 0.9% 1,000 ML in EMPTY BAG 1 BAG IV SCH ×4 (06:55→23:38)
[2022-12-31 06:56] VITALS: RESP 18
[2022-12-31 07:02] LABS: Glucose,Whole Blood 186 mg/dL (70-110)
[2022-12-31] MEDS ORDERED: fentaNYL (PF) 50 MCG/ML 2 ML AMP ONE (07:19)
[2022-12-31] MEDS ORDERED: VERAPAMIL 2.5 MG/ML 2 ML AMP ONE (07:28)
[2022-12-31] MEDS: MIDAZOLAM 2 MG/2 ML VIAL IV ONE ×2 (07:40→08:51)
[2022-12-31] MEDS ORDERED: LIDOCAINE 1% INJ 10MG/ML (5 ML VIAL-PF) SQ ONE (07:40)
[2022-12-31] MEDS ORDERED: fentaNYL (PF) 50 MCG/ML 2 ML AMP IV ONE (07:40)
[2022-12-31] MEDS ORDERED: VERAPAMIL SYRINGE (5 MG/10 ML) INTRAARTER ONE (07:41)
[2022-12-31] MEDS ORDERED: HEPARIN SODIUM 1,000 UN/ML (10ML VL) ONE (07:44)
[2022-12-31] MEDS: HEPARIN SODIUM 1,000 UN/ML (10ML VL) IV ONE ×4 (07:44→09:20)
[2022-12-31] MEDS ORDERED: CLOPIDOGREL 75 MG TAB ONE (08:31)
[2022-12-31] MEDS ORDERED: CLOPIDOGREL 75 MG TAB PO ONE (08:35)
[2022-12-31] MEDS ORDERED: NITROGLYCERIN 1000MCG/10ML SYRINGE INTRACORON ONE (08:40)
[2022-12-31] MEDS ORDERED: IOPAMIDOL-370 125ML BTL INJ ONE (09:36)
[2022-12-31] MEDS ORDERED: RX INFO: IV CONTRAST WAS GIVEN 1 EACH MISC MISCELLANE PRN (10:39)
[2022-12-31] MEDS ORDERED: MAG HYDROX/AL HYDROX/SIMETH 30 ML CUP PO PRN (10:39)
[2022-12-31] MEDS ORDERED: ZOLPIDEM 5 MG TAB PO PRN (10:39)
[2022-12-31] MEDS ORDERED: ATROPINE SULFATE 0.1 MG/ML 10ML SYRINGE IV PRN (10:39)
[2022-12-31] MEDS ORDERED: ACETAMINOPHEN TAB 325 MG TAB ONE (11:21)
[2022-12-31] MEDS ORDERED: ACETAMINOPHEN TAB 325 MG TAB PO PRN (11:22)
[2022-12-31 12:01] LABS: Glucose,Whole Blood 284 mg/dL (70-110)
[2022-12-31] MEDS: INSULIN ASPART (NovoLOG) 100 UNIT/ML VIAL SQ SCH ×3 (12:58→20:19)
--- NOTE | 2022-12-31 13:06 | P.PRCINT ---
Percutaneous Coronary Int. - Percutaneous Coronary Intervention Percutaneous Coronary Intervention: PROCEDURES PERFORMED: Left heart catheterization, bilateral coronary angiography, PCI LAD with 2.75 x 28mm Xience GALILEA, post dilated with a 3.5 NC balloon, PCI proximal circumflex with a 3.5 x 38mm Xience GALILEA, post dilated with a 4.0 NC balloon, IVUS LAD and circumflex INDICATION: Abnormal stress test with apical and inferior ischemia concerning for ischemia in the LAD, RCA territory, CASTRO NYHA class 3 symptoms CONSENT:I have discussed the risks, benefits and alternative therapies for the above-mentioned procedure and for both sedation/analgesia as well as necessary blood product administration, if indicated, as they pertain to this patient. The patient has indicated understanding and acceptance of the risks and procedures discussed. PROCEDURE: After the risks, benefits and alternatives of the above mentioned procedure explained in detail with the patient, informed consent was obtained. Patient was taken to the catheterization lab and prepped and draped in usual fashion. 1% lidocaine was used to anesthetize the right radial artery. A 6- Tongan sheath was placed in the right radial artery using modified Seldinger technique. Left coronary angiography was performed with a 5-Tongan JL 3.5 catheter and right coronary angiography was performed with a 5-Tongan JR5 catheter in various views. A 5-Tongan FR5 catheter was inserted into the left ventricle and pressure measurements were obtained. The decision was made to perform iFR of the LAD. Heparin was given for ACT > 250. A 6FR CLS 4.0 guide was used to engage the left main however preferentially going into the circumflex. There was an acute angle of the LAD takeoff and difficulty engaging the LAD with the pressure wire. The CLS 4.0 was exchanged for a 6Fr CLS 3.5 guide and somewhat more coaxial with LAD however still unable to wire with the iFR wire. Given ischemia in the apex on stress test and 90% mid LAD lesion, decision was made to perform PCI LAD. A 0.014 BMW wire was advanced into the circumflex to help support the guide for engagement into the LAD. Using a Supercross 45 degree angle, a 0.014 whisper wire was advanced into the diagonal 1 branch and then a 0.014 BMW wire was advanced into the distal LAD. The Supercross was trapped with a 2.0 x 20mm balloon and removed. Initial thought was to perform balloon angioplasty of the diagonal 1 branch however when advancing a 1.5 NC balloon, the balloon was not passing easily past the ostial LAD with consideration of wire being caught on a stent strut. Therefore the balloon was switched to the LAD wire and was able to easily pass. The 0.014 whisper diagonal wire was removed. Balloon angioplasty was performed of the mid LAD with a 3.0 x 20mm NC balloon. There was some pinching/ jailing of a small caliber diagonal 1 branch and patient began having chest pain and therefore initially thought this was related to the diagonal branch. The diagonal branch was wired with a 0.014 BMW wire however unable to pass the 1.5 NC balloon and there was difficulty pulling out the balloon with guide catheter being sucked into the LAD. A 1.0 balloon was also unable to be advanced past the mid LAD which did not appear to have significant disease and therefore felt may have been an issue with the wire and the diagonal wire was pulled. Given diagonal branch was small caliber, decision was made to stent over the diagonal branch. A 2.75 x 28mm Xience GALILEA was placed in the mid LAD, jailing the diagonal 1 branch. Repeat angiography showed dissection of the circumfex which may have been caused by the guide deep seating with pulling balloon out. A 0.014 BMW wire was able to be wired. Limited injections were made to prevent further dissection. IVUS showed the wire was intraluminal at the mid circumflex level without significant dissection at this level. A 3.5 x 38mm Xience GALILEA was placed in the proximal circumflex covering the circumflex dissection. The stent was post dilated with a 4.0 NC balloon. Repeat IVUS showed excellent stent apposition with no further dissection. There was dissection of the small caliber OM1 branch however not flow limiting and patient's chest pain had resolved and therefore treated medically. IVUS of LAD showed somewhat underexpanded stent and therefore the proximal and mid portion of the stent was post dilated with a 3.5 NC balloon. Repeat IVUS LAD showed good stent apposition with no dissection. Final angiogram was taken however limited injections to prevent propogation of dissection. Pre intervention there was 90% mid LAD stenosis and DONNA 3 flow and post intervention there was <10% stenosis with DONNA 3 flow. Preintervention of the circumflex dissection there was 100% stenosis and DONNA 0 flow and post intervention there was 0% stenosis and DONNA 3 flow. The right radial sheath was removed and a TR band was placed with hemostasis achieved. The patient tolerated the procedure well. Patient was transported back to the post catheterization holding area in stable condition. Conscious Sedation: Patient was monitored under the direct supervision of myself for conscious sedation using Versed and fentanyl for a total duration of 113 minutes HEMODYNAMICS: Ao: 138/59 LV: 133/5, LVEDP 15 SELECTIVE CORONARY ARTERIOGRAPHY: LEFT MAIN: The left main is a large caliber vessel which bifurcates into the LAD and circumflex. There is no significant stenosis. LEFT ANTERIOR DESCENDING CORONARY ARTERY: LAD is a large caliber vessel which wraps around to the apex. There is a proximal LAD stent with diffuse 20-30% instent stenosis. The proximal to mid LAD has 30-40% stenosis. The mid LAD just after the diagonal 1 branch has a 90% stenosis. There are left to right collaterals to the RCA. LEFT CIRCUMFLEX CORONARY ARTERY: Left circumflex is a large caliber vessel without significant stenosis. RIGHT CORONARY ARTERY: The right coronary artery is a large caliber vessel which gives off a PDA and PLV branch and is the dominant vessel. There is 100% distal RCA stenosis. FINAL IMPRESSION: 1. CAD as described above with 100% distal RCA, 90% mid LAD stenosis. 2. S/p PCI LAD with 2.75 x 28mm Xience GALILEA, post dilated with a 3.5 NC balloon 3. Proximal circumflex dissection, s/p PCI proximal circumflex with a 3.5 x 38mm Xience GALILEA, post dilated with a 4.0 NC balloon 4. Normal left sided filling pressures PLAN: 1. Aggressive risk factor modification per most recent ACC/AHA guidelines. 2. Continue aspirin and Plavix for 12 months.
[2022-12-31 14:57] VITALS: BMI 18.8
[2022-12-31 16:51] LABS: Glucose,Whole Blood 191 mg/dL (70-110)
[2022-12-31 20:07] LABS: Glucose,Whole Blood 235 mg/dL (70-110)
[2022-12-31] MEDS ORDERED: LOSARTAN-HCTZ 50-12.5 MG 1 EACH TAB PO SCH (21:00)
[2022-12-31] MEDS ORDERED: ATORVASTATIN 80 MG TAB PO SCH (21:00)
[2023-01-01 05:50] LABS: Glucose,Whole Blood 149 mg/dL (70-110)
[2023-01-01] MEDS: INSULIN ASPART (NovoLOG) 100 UNIT/ML VIAL SQ SCH (05:56)
[2023-01-01] MEDS ORDERED: METOPROLOL TARTRATE 25 MG TAB PO SCH (09:00)
[2023-01-01] MEDS ORDERED: ASPIRIN 81 MG PO SCH (09:00)
[2023-01-01] MEDS ORDERED: CLOPIDOGREL 75 MG TAB PO SCH (09:00)
[2023-01-01 09:36] LABS: Basophils % (A) 0 %; Eosinophils # (A) 0.1 k/uL (0-0.7); Eosinophils % (A) 2 %; HCT 33.4 % (34.0-46.0); HGB 10.1 gm/dL (11.4-16.0); Hypochromasia Marked; Lymphocytes # (A) 1.3 k/uL (1.0-4.8); Lymphocytes % (A) 25 %; MCH 21.2 pg (25.0-35.0); MCHC 30.3 g/dL (31.0-37.0); MCV 69.9 fL (80.0-100.0); Mean Platelet Volume 7.1; Microcytosis Moderate; Monocytes # (A) 0.3 k/uL (0-1.0); Monocytes % (A) 6 %; Neutrophils # (A) 3.2 k/uL (1.3-7.7); Neutrophils % (A) 65 %; Platelet Count 163 k/uL (150-450); RBC 4.78 m/uL (3.80-5.40); RDW 14.9 % (11.5-15.5)
[2023-01-01 09:52] VITALS: BP 106/69; PULSE 65; TEMP 97.8
[2023-01-01 09:54] LABS: African American GFR (CKD) >90 (>60 ml/min/1.73 sqM); Anion Gap 10 mmol/L; Blood Urea Nitrogen 10 mg/dL (7-17); Calcium 8.5 mg/dL (8.4-10.2); Carbon Dioxide 24 mmol/L (22-30); Chloride 101 mmol/L (98-107); Glucose 252 mg/dL (74-99); Non-African American GFR(CKD) >90 (>60 ml/min/1.73 sqM); Potassium 3.6 mmol/L (3.5-5.1); Sodium 135 mmol/L (137-145)
[2023-01-01 12:06] LABS: Glucose,Whole Blood 225 mg/dL (70-110)
--- NOTE | 2023-01-01 12:32 | P.DS ---
Providers Attending physician: Tomer Short DO Consults: 12/31/22 10:39 Consult Physician Routine Consulting Provider: [facility] Consult Reason/Comments: Post Interventional patient Do you want consulting provider notified?: Already Contacted Primary care physician: Cecil [facility] [place] [facility] Hospital Course: Patient is a pleasant 57 year old female with history of CAD with prior PCI of proximal LAD who has been having some dyspnea on exertion and had abnormal stress test with inferior and apical ischemia. She underwent left heart cath 01/01 with a 90% mid LAD lesion and therefore underwent PCI mid LAD. She develop ed chest pain during procedure with dissection of the circumflex which was covered with a stent with resolution of chest pain. She was monitored overnight with no further chest pain and vitals stable. Appears stable for discharge today with outpt followup. She will be on aspirin and Plavix for minimum of 6 months. Plan - Discharge Summary New Discharge Prescriptions: New Clopidogrel [Plavix] 75 mg PO DAILY #90 tablet No Action Losartan-Hctz 50-12.5 mg [Hyzaar 50-12.5] 1 tab PO HS Aspirin 81 mg PO DAILY #30 chew Atorvastatin [Lipitor] 80 mg PO HS #30 tab Metoprolol Tartrate [Lopressor] 25 mg PO DAILY #30 tab Nitroglycerin Sl Tabs [Nitrostat] 0.4 mg SUBLINGUAL Q5M PRN #25 tab PRN Reason: Chest Pain glyBURIDE/METFORMIN HCL [Glucovance 5-500 mg] 1 tab PO AC-BID #60 tablet Ezetimibe [Zetia] 10 mg PO DAILY Empagliflozin [Jardiance] 10 mg PO DAILY Discharge Medication List Losartan-Hctz 50-12.5 mg [Hyzaar 50-12.5] 1 tab PO HS 10/02/16 [History] Aspirin 81 mg PO DAILY #30 chew 11/25/18 [Rx] Atorvastatin [Lipitor] 80 mg PO HS #30 tab 11/25/18 [Rx] Metoprolol Tartrate [Lopressor] 25 mg PO DAILY #30 tab 11/25/18 [Rx] Nitroglycerin Sl Tabs [Nitrostat] 0.4 mg SUBLINGUAL Q5M PRN #25 tab 11/25/18 [Rx] glyBURIDE/METFORMIN HCL [Glucovance 5-500 mg] 1 tab PO AC-BID #60 tablet 11/25/18 [Rx] Empagliflozin [Jardiance] 10 mg PO DAILY 12/31/22 [History] Ezetimibe [Zetia] 10 mg PO DAILY 12/31/22 [History] Clopidogrel [Plavix] 75 mg PO DAILY #90 tablet 01/01/23 [Rx] Follow up Appointment(s)/Referral(s): Tomer Short DO [STAFF PHYSICIAN] - 01/08/23 1:15 pm (January 08 at 1:15 pm. ) Patient Instructions/Handouts: *[facility]gery [facility] - After Heart Catheterization - Wrapper Operator Instructions
== END 2023-01-01 13:38 | disposition home or self-care (01) ==
LOC: CATHCVL 06:08 → 3SCARD 09:33 → CATHCVL 01-01 13:38
PROVIDERS: ATTEND Internal Medicine
DX: I25.10 Atherosclerotic heart disease of native coronary artery without angina pectoris (principal); I34.0 Nonrheumatic mitral (valve) insufficiency; I10 Essential (primary) hypertension; E78.5 Hyperlipidemia, unspecified; E11.9 Type 2 diabetes mellitus without complications; Z79.899 Other long term (current) drug therapy
CPT/HCPCS: 92978; 93458; 80048; 85025; C9600; C1769 ×4; C1887 ×2; C1894; C1725 ×8; C1753; C1874 ×2; J2250; J2001; J3010; J1644; Q9967

== ENCOUNTER → 2025-03-14 | Outpatient (CLI) | payer BC ==
--- NOTE | 2025-03-14 14:38 | MM ---
Reason for Exam: Screening (asymptomatic). Last mammogram was performed 3 year(s) and 3 month(s) ago. Patient History: Menarche at age 16. Patient has no children. Postmenopausal. Sister had breast cancer, age 50. Risk Values: Che 5 year model risk: 2.5%. NCI Lifetime model risk: 13.1%. Prior Study Comparison: 01/29/2016 Bilateral Screening Mammogram, [facility]. 04/26/2019 Bilateral Screening Mammogram, [facility]. 12/23/2021 Bilateral Screening Mammogram, [facility]. Tissue Density: The breasts are extremely dense, which lowers the sensitivity of mammography. Findings: Analyzed By CAD. There is no suspicious group of microcalcifications or new suspicious mass in either breast. Overall Assessment: Benign, BI-RAD 2 Management: Screening Mammogram of both breasts in 1 year. . Patient should continue monthly self-breast exams. A clinical breast exam by your physician is recommended on an annual basis. This exam should not preclude additional follow-up of suspicious palpable abnormalities. Note on Che scores and lifetime risk: 1. A Che score greater than 3% is considered moderate risk. If this is the case, consider specialist referral to assess eligibility for a risk reducing agent. 2. If overall lifetime risk for the development of breast cancer is 20% or higher, the patient may qualify for future screening with alternating mammogram and breast MRI. [facility], , 03/14/2025 2:35 PM. Electronically signed and approved by: Hansel Hurley M.D. Radiologis
== END | disposition home or self-care (01) ==
LOC: RADMAMWWP 13:21
PROVIDERS: ATTEND Internal Medicine
DX: Z12.31 Encounter for screening mammogram for malignant neoplasm of breast (principal); R92.343 Mammographic extreme density, bilateral breasts; Z78.0 Asymptomatic menopausal state; Z80.3 Family history of malignant neoplasm of breast
CPT/HCPCS: 77067